=== PATIENT | female | born 2005 | race Caucasian/White ===

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

== ENCOUNTER 2024-04-02 10:09 | Outpatient (OUT) | payer BC, SELFPAY ==
--- OUTSIDE RECORDS SUMMARY | 2024-04-02 10:31 | XMS_ITS | CCD ---
Author Organization [facility] Care Team Providers Care Refrigeration Installer Name Role Phone BRANDEN, DR LYNN Attending [...] UNKNOWN Admitting Unavailable ELENA ORTEGA Attending Unavailable GLENYS STEWART Attending Unavailable Shane Blank MD Primary Care Provider [phone] Allergies Allergy Classification Reported Allergen(s) Allergy Type Date of Onset Reaction(s) Facility (1 source) Amoxicillin Drug Allergy 05-28-[address] [facility] Repository Medications Current Medications Medication Drug Class(es) Dates Sig (Normalized) Sig (Original) 21 day ethinyl estradiol 0.786817 mg/hr / etonogestrel 0.005 mg/hr vaginal system (1 source) Progestin, Estrogen Start: 02-06-2024 etonogestrel-ethinyl estradiol (NuvaRing) 0.12-0.015 MG/24HR vaginal ring Indications: Encounter for other contraceptive management Insert vaginally and leave in place for 21 consecutive days (3 weeks), then remove. Wait for 7 days before inserting new ring. 1 each 12 02/06/2024 Active etonogestrel 68 mg drug implant (2 sources) Progestin Start: 02-06-2024 End: 02-05-2027 etonogestrel-eluting 68 mg contraceptive implant 1 each Problems Active Problems Problem Classification Problem Date Documented Da te Episodic/Chronic Contraceptive and procreative management (2 sources) Patient encounter status; Translations: [Encounter for surveillance of implantable subdermal contraceptive] 02-06-2024 Episodic E Codes: Struck by; against (1 source) Striking against or struck by other objects, initial encounter; Translations: [STRIKING AGNST/STRUCK OTH OBJ INIT] Onset: 05-31-2021 Episodic E Codes: Unspecified (1 source) Activity, baseball; Translations: [ACTIVITY BASEBALL] Onset: 05-31-2021 Episodic Headache; including migraine (2 sources) Tension-type headache; Translations: [Tension-type headache, unspecified, not intractable] Onset: 07-19-2023 07-19-2023 Chronic Other nervous system disorders (1 source) Circadian rhythm sleep disorder of shift work type; Translations: [Circadian rhythm sleep disorder, shift work type] Onset: 07-19-2023 07-19-2023 Chronic Other non-traumatic joint disorders (4 sources) Pain [...] Name Value Interpretation Reference Range Facil ity Insertion/Removal of Contrac eptive Capsuleon 02-06-2024 Adrienne Alcaraz LPN 02/26/2024 4:27 PM Insertion/Removal of Contraceptive Capsule Date/Time: 02/06/2024 4:31 PM Performed by: Glenys Stewart DO Authorized by: Glenys Stewart DO Consent: Consent obtained: Written Consent given by: Patient Patient questions answered: yes Patient agrees, verbalizes understanding, and wants to proceed: yes Educational handouts given: yes Instructions and paperwork completed: yes Indication: Indication: Presence of non-biodegradable drug delivery implant Pre-procedure: Local anesthetic: Lidocaine without epinephrine The site was cleaned and prepped in a sterile fashion: yes Procedure: Procedure: Removal Small stab incision was made in arm: yes Left/right: Left Preloaded contraceptive capsule trocar was placed subdermally: no Visualization of implant was obtained: yes Contraceptive capsule was inserted and trocar removed: no Visualization of notch in stylet and palpation of device: no Palpation confirms placement by provider and patient: no Site was closed with steri-strips and pressure bandage applied: no Comments: Nexplanon Removal: Patient presents today for removal of Nexplanon. Written consent for procedure was obtained and patient was placed in supine position with left arm flexed at elbow. Skin was cleansed with alcohol/Betadine and 2cc of Lidocaine was injected underneath palpated Nexplanon at distal end. After allowing for sufficient time for numbing agent to take effect, the skin overlying the end of Nexplanon was incised with an 11inch blade scalpel. A 7.5in hemostat was inserted in the incision site to grab device and Nexplanon was released from tissue. Nexplanon implant was removed in its entirety and visualized by myself and patient. The skin was cleansed with alcohol and the incision was covered with gauze. Post-procedure care was reviewed and patient will continue with proposed plan of care. Patient was advised to call office with any questions or concerns. Follow Up: Patient is to return to the office as needed for any routine appointments. [facility] Insertion/Removal of Contrac eptive CapsuleOrdered By: Adrienne Alcaraz on 02-06-2024 [facility] MIN 3 Von 2021 [...] GIBSON LAWSON Date: 2021-05-28 15:[address] [facility] CHLAMYDIA/GONOCOCCUS WAYNE (SW AB/URINE/PAPon 02-07-2021 Chlamydia trachomatis, WAYNE Negative Normal Negative [facility] Comment on above: Performed By: #### C T/NGNA #### [facility] [address] [place] [address] Dr. Stephanie Pierre Neisseria gonorrhoeae, WAYNE Negative Normal Negative [facility] Comment on above: Performed By: #### C T/NGNA #### [facility] [address] [place] [address] Dr. Stephanie Pierre VAGINITIS/VAGINOSIS DNA PROB [place] 02-03-2021 Lara species Negative Normal Negative [facility] Comment on above: Performed By: #### V AGINT #### [facility] [address] [place] [address] Dr. Stephanie Pierre Gardnerella vaginalis Negative Normal Negative [facility] Comment on above: Performed By: #### V AGINT #### [facility] [address] [place] [address] Dr. Stephanie Pierre Trichomonas vaginalis Negative Normal Negative [facility] Comment on above: Performed By: #### V AGINT #### [facility] [address] [place] [address] Dr. Stephanie Pierre Covid-19 PCR (CVDTB)on 01-10 SARS-CoV-2 (COVID-19) RNA WAYNE+probe Ql (Unsp spec) Not detected Normal NOT DETECTED [facility] Comment on above: Result Comment: This test is not yet approved or cleared by the [place] FDA. When there are no FDA-approved or cleared tests available, and other criteria are met, FDA can make tests available under an emergency access mechanism called an Emergency Use Authorization (EUA). The EUA for this test is supported by the [employer] of Health and Human Service's (HHS's) declaration [...] consistent with SARS-CoV-2. Performed By: #### C [facility] #### [facility] [address] [place] [address] Dr. Stephanie Pierre Covid-19 PCR (CVDTB)on 11-10 SARS-CoV-2 (COVID-19) RNA WAYNE+probe Ql (Unsp spec) Not detected Normal NOT DETECTED [facility] Comment on above: Result Comment: This test is not yet approved or cleared by the [place] FDA. When there are no FDA-approved or cleared tests available, and other criteria are met, FDA can make tests available under an emergency access mechanism called an Emergency Use Authorization (EUA). The EUA for this test is supported by the [employer] of Health and Human Service's (HHS's) declaration [...] SARS-CoV-2. Performed By: #### C VDTB #### [facility] [address] [place] [id number] Angus Solitario SYMPTOMATIC COVID-19 ANTIGEN on 11-19-2020 EUA Statement SEE BELOW Normal [facility] Comment on above: Result Comment: This test [...] sooner. Performed By: #### C VDAGS #### [facility] [address] [place] [id number] Angus Solitario SARS-CoV-2 (COVID-19) RNA WAYNE+probe Ql (Unsp spec) Negative Normal NEGATIVE [facility] Comment on above: Result Comment: CONF IRMATION BY PCR PENDING PER CDC GUIDELINES/ SYMPTOMATIC PATIENT. Performed By: #### C VDAGS #### [facility] [address] [place] [address] Angus Solitario Coding Summaryon 08-13-2019 Coding Summary CODING DATE: 08/13/2019 [facility] STATUS: Home PAYOR: Medicaid HMO ADMIT DX: [...] Coded By: Juan Howard Date Saved: 08/13/2019 09:03 am [facility] Coding Summary CODING DATE: 08/13/2019 [facility] STATUS: Home PAYOR: Medicaid HMO ADMIT DX: [...] Juan Howard Date Saved: 08/13/2019 09:01 am [facility] Consent Formson 08-11-2019 Consent Forms [id number] [facility] ED Clinical Summaryon 2019 ED Clinical Summary [facility] - Emergency Department [address] [place] [address] ED Clinical Summary PERSON INFORMATION Name: NICCI SHAW Age: 14 Years Sex: FEMALE : 2005 MRN: Acct#: Visit Reason: Finger injury - Minor; RIGHT FINGER PAIN Arrival: 08/07/2019 19:12:03 Discharge: 08/07/2019 20:18:00 LOS: 000 01:06 Check In: 08/07/2019 19:12:03 Checkout:08/07/2019 20:18:00 Address: [address] [place] [address] PCP: SHANE BLANK PROVIDER INFORMATION Provider Role Assigned Unassigned Kev Nixon PA-C ED PA 08/07/2019 19:13:55 08/07/2019 19:15:19 Lesvia Luis ED 08/07/2019 19:14:09 JESUS Montelongo, Sarah ED Nurse [...] sprain of right ring finger, initial encounter ([id number] S63.694A, Discharge, Medical) Plan Condition: Stable. Disposition: Discharged: Time 08/07/2019 19:55:00, to home. Patient was given the following educational materials: Cryotherapy, Finger Sprain, Adult. Follow up with: SHANE BLANK Within 3 to 5 days; ABELARDO JACKSON [...] Follow-Up: With: Address: When: ABELARDO JACKSON [address] [place] [address] Business (1) Within 3 to [...] require the hand. With: Address: When: SHANE BLANK [address] [place] [address] Business (1) Within 3 to 5 days DIAGNOSIS: Other sprain of right ring finger, initial encounter Patient Understands: Yes - Patient/family/careg iver verbalizes understanding of instructions given Comment: [facility] ED Note - Physicianon 2019 ED Note [...] sprain of right ring finger, initial encounter ([id number] S63.694A, Discharge, Medical) Plan Condition: Stable. Disposition: Discharged: Time 08/07/2019 19:55:00, to home. Patient was given the following educational materials: Cryotherapy, Finger Sprain, Adult. Follow up with: SHANE BLANK Within 3 to 5 days; ABELARDO KRESGE Within 3 to 5 days Orthopaedic specialist [...] [Verified on: 08/07/2019 20:12 EDT] Lesvia Luis [facility] ED Note - Physician Patient: NICCI SHAW Age: 14 years Sex: FEMALE : 2005 Associated Diagnoses: None Author: Kev Nixon PA-C Basic Information Time seen: Date & time 08/07/2019 19:14:00. History source: Patient. Arrival mode: Private vehicle. History limitation: None. Kev Nixon PA-C [facility] ED Patient Education Noteon 08-07-2019 ED Patient [...] sitting or lying down. Medicines ? Take gsxg-ois-krpixsb and prescription medicines only as told by [...] 04/05/2005 Document Revised: 05/18/2017 Document Reviewed: 05/18/2017 [employer] Interactive Patient Education ? 2019 [employer]. Cryotherapy What is cryotherapy? Cryotherapy, or cold [...] 10/23/2011 Document Revised: 05/03/2017 Document Reviewed: 11/10/2015 Elsevier Interactive Patient Education ? 2019 [employer] Normal [facility] ED Patient Summaryon 020 ED Patient Summary [facility] - Emergency Department [address], [place] [id number] PATIENT DISCHARGE INSTRUCTIONS Patient Information Name: NICCI SHAW Age: 14 Years Date of : 2005 Reason For Visit: Finger injury - Minor; RIGHT FINGER PAIN Arrival Time: 08/07/2019 19:12:03 Primary Care Physician: SHANE BLANK Attending Physician: Soto Thomas Comment: Visit Diagnosis: Diagnoses This Visit Finger injury - Minor ([id number]) Other sprain of right ring finger, initial encounter (K06.071V) Prescription Information: If you have been given a prescription for narcotics, seek immediate medical attention if you have any difficulty breathing or any sudden status changes such as confusion and sleepiness. If you or anyone you know is experiencing suicidal thoughts, mental health, alcohol and/or drug addiction problems; contact the [facility] 02/10 Crisis Hotline -Text 4HHDB wk [id number]. If you received any narcotics, sedation, or [...] documents With: Address: When: ABELARDO JACKSON [address] [facility], [address] [place], [place] [id number] Business (1) Within 3 to 5 days [...] require the hand. With: Address: When: SHANE BLANK [address] [place] [address] [address] [place], [place] [id number] Business (1) Within 3 to 5 days Medication Information: The exam and treatment you received today in the [facility] Emergency Department were for an urgent problem and are not intended as complete care. It is important for you to follow up with a doctor, nurse practitioner, or physician?s assistant director of security for ongoing care. If your symptoms become [...] so we can reach you if necessary. [facility] Emergency Department has provided you with a complete list of medications post discharge. Please inform your narrative writer/provider of your visit and for further instruction [...] sitting or lying down. Medicines ? Take ujze-dww-wsrjzrv and prescription medicines only as told by [...] 04/05/2005 Document Revised: 05/18/2017 Document Reviewed: 05/18/2017 [employer] Interactive Patient Education ? 2019 [employer]. Cryotherapy What is cryotherapy? Cryotherapy, or cold [...] 10/23/2011 Document Revised: 05/03/2017 Document Reviewed: 11/10/2015 [employer] Interactive Patient Education ? 2019 [employer]. Viruses or Bacteria What?s got you sick? [...] GET SMART Know When Antibiotics Work U.S. Department of Health and Human Services Centers for Disease Control and Prevention November 2013 [facility] XR Finger Righton 08-07-2019 XR Finger Right [...] Lawson 08/07/19 7:37 pm Technologist: Koki HERMAN [facility] Vital Signs Date Time Vital Sign Value Performing Clinician Aliyai antoine 02-06-2024 16:20-0500 Body mass index (BMI) [Ratio] 24.81 kg/m2 Glenys Terry DO Work Phone: [facility] 02-06-2024 16:20-0500 Body weight 76.2 kg Glenys Lizarragao DO Work Phone: [facility] 02-06-2024 16:20-0500 Diastolic blood pressure 78 mm[Hg] Glenys Terry DO Work Phone: [facility] 02-06-2024 16:20-0500 Systolic blood pressure 116 mm[Hg] Glenys Lizarraago DO Work Phone: [facility] Healthcare Encounters Encounter Date Encounter Type Care Provider Facility Start: 02-06-2024 End: 02-06-2024 Patient encounter procedure Glenys Stewart DO Work Phone: [facility] BCP OB Comment on above: Encounter for remova l and reinsertion of Nexplanon; Encounter for other contraceptive management Start: 02-06-2024 End: 02-06-2024 ambulatory GLENYS TERRY Not Available Start: 04-10-2023 End: 04-10-2023 ambulatory ELENA ORTEGA Not Available Start: 09-06-2022 End: 09-08-2022 ambulatory UNKNOWN PROVIDER [facility] Start: 07-11-2022 ambulatory Ivy dee:[facility] Start: 06-08-[address] SHANE BLANK Facility :[facility] Start: 05-28-2021 End: 05-28-[address] SHANE BLANK Facility:[facility] Start: 02-01-2021 End: 02-01-[address] SHANE BLANK Facility:[facility] Start: 01-21-2021 End: 01-21-[address] SHANE BLANK Facility:[facility] Start: 11-19-2020 End: 11-19-[address] SHANE BLANK Facility:[facility] Procedures Date Procedure Procedure Detail Performing Clinician Start: 02-06-2024 AGRICULTURAL PILOT INSERTION/REMOVA L OF CONTRACEPTIVE CAPSULE Glenys Stewart DO Work Phone: Plan of Treatment Date Care Activity Detail Author Start: 11-11-2023 Influenza vaccination Influenza Vacc ine (#1) [facility] Immunizations Immunization Date Immunization Notes Care Provider Fa cility 01-18-2022 influenza virus vacc ine, unspecified formulation Glenys Stewart DO Work Phone: [facility] Payers Date Payer Category Payer [facility] [id number] 2023 Unknown [id number] 2022 Self-pay 2005 Unknown [id number] 2004 Unknown [id number] [id number] 2004 Unknown [id number]. [id number] 1975 Unknown [id number]. [id number] 1975 Unknown [id number] [id number] 1975 Unknown [id number] [id number]. [id number] 1975 Unknown [id number]. [id number] 1975 Unknown [id number] [id number] 1959 Unknown [id number] Social History Date Type Detail Facility Start: 07-19-2023 Tobacco smoking stat [facility] Tobacco smoking consumption unknown [facility] Healthcare Start: 2005 Sex assigned at Not on file [facility] Gender identity Not on file [facility] History of Present illness Narrative 02-06-2024 Glenys Stewart DO - 02/06/2024 3:30 PM EST Note Date & Type Note Facility 02-06-2024 History of Presen t illness Narrative Associated Order(s): Insertion/Removal of Contraceptive Capsule Post-Procedure Diagnose(s): Encounter for removal and reinsertion of Nexplanon Reason for Appointment: Patient ID: Nicci Shaw is a 18 y.o. female who presents for nexplanon removal/insertion Patient presents today for a Nexplanon Removal appointment. MEDICATIONS No current outpatient medications ALLERGIES No Known Allergies SURGICAL HISTORY History reviewed. No pertinent surgical history. REVIEW OF SYSTEMS Review of Systems: Review of Systems Constitutional: Negative. HENT: Negative. Eyes: Negative. Respiratory: Negative. Cardiovascular: Negative. Gastrointestinal: Negative. Genitourinary: Negative. Musculoskeletal: Negative. Skin: Negative. Neurological: Negative. All other systems reviewed and are negative. Hematological: Negative. Endocrine: Negative. Allergic/Immunologic: Negative. OBJECTIVE Objective: Physical Exam Constitutional: Appearance: Normal appearance. She is well-developed. Cardiovascular: Rate and Rhythm: Normal rate and regular rhythm. Pulmonary: Effort: Pulmonary effort is normal. Breath sounds: Normal breath sounds. Abdominal: General: Bowel sounds are normal. There is no distension. Palpations: Abdomen is soft. Tenderness: There is no abdominal tenderness. There is no guarding or rebound. Musculoskeletal: General: No swelling. Normal range of motion. Right lower leg: No edema. Left lower leg: No edema. Neurological: Mental Status: She is alert and oriented to person, place, and time. Skin: General: Skin is warm and dry. Psychiatric: Mood and Affect: Mood normal. Behavior: Behavior normal. Vitals and nursing note reviewed. Exam conducted with a family member caretaker present. Vitals: Estimated body mass index is 24.81 kg/m as calculated from the following: Height as of 05/21/23: 5' 9 . Weight as of this encounter: 168 lb. BP: 116/78 No LMP recorded. Patient has had an implant. ASSESSMENT & PLAN Assessment/Plan Encounter Diagnosis: ICD-10-CM 1. Encounter for removal and reinsertion of Nexplanon Z30.46 etonogestrel-eluting 68 mg contraceptive implant 1 each POCT , urine manually resulted Insertion/Removal of Contraceptive Capsule Date/Time: 02/06/2024 4:31 PM Performed by: Glenys Stewart DO Authorized by: Glenys Stewart DO Consent: Consent obtained: Written Consent given by: Patient Patient questions answered: yes Patient agrees, verbalizes understanding, and wants to proceed: yes Educational handouts given: yes Instructions and paperwork completed: yes Indication: Indication: Presence of non-biodegradable drug delivery implant Pre-procedure: Local anesthetic: Lidocaine without epinephrine The site was cleaned and prepped in a sterile fashion: yes Procedure: Procedure: Removal Small stab incision was made in arm: yes Left/right: Left Preloaded contraceptive capsule trocar was placed subdermally: no Visualization of implant was obtained: yes Contraceptive capsule was inserted and trocar removed: no Visualization of notch in stylet and palpation of device: no Palpation confirms placement by provider and patient: no Site was closed with steri-strips and pressure bandage applied: no Comments: Nexplanon Removal: Patient presents today for removal of Nexplanon. Written consent for procedure was obtained and patient was placed in supine position with left arm flexed at elbow. Skin was cleansed with alcohol/Betadine and 2cc of Lidocaine was injected underneath palpated Nexplanon at distal end. After allowing for sufficient time for numbing agent to take effect, the skin overlying the end of Nexplanon was incised with an 11inch blade scalpel. A 7.5in hemostat was inserted in the incision site to grab device and Nexplanon was released from tissue. Nexplanon implant was removed in its entirety and visualized by myself and patient. The skin was cleansed with alcohol and the incision was covered with gauze. Post-procedure care was reviewed and patient will continue with proposed plan of care. Patient was advised to call office with any questions or concerns. Follow Up: Patient is to return to the office as needed for any routine appointments. Documented by Kassi Renner LPN on behalf of: Glenys Stewart DO documented in this encounter [facility] Evaluation note Note Date & Type Note Facility Evaluation note Diagnosis Encounter for removal and reinsertion of Nexplanon Encounter for other contraceptive management documented in this encounter [facility] Summary Purpose Family History No Family History Records FoundNo Family History Records FoundNo Family History Records FoundNo Family History Records FoundNo Family History Records Found Advance Directives No Advanced Directives Records FoundNo Advanced Directives Records FoundNo Advanced Directives Records FoundNo Advanced Directives Records FoundNo Advanced Directives Records Found Additional Source Comments INFORMATION SOURCE (unrecogn ized section and content) DATE CREATED AUTHOR 08/13/2019 [facility] DATE CREATED AUTHOR AUTHOR'S ORGANIZ ATION 2021 [facility] DATE CREATED AUTHOR AUTHOR'S ORGANIZ ATION 07/20/2022 [facility] DATE CREATED AUTHOR AUTHOR'S ORGANIZ ATION 09/09/2022 [facility] DATE CREATED AUTHOR AUTHOR'S ORGANIZ ATION 02/09/2024 [facility] EPIC Reason for Visit (unrecogniz ed section and content) Reason Comments nexplanon removal/insertion Care Teams (unrecognized sec tion and content) Refrigeration Installer Relationship Specialty Start Date End Date Shane Blank MD [address] [place] [address] PCP - General Family Medicine 03/29/23 FOR RECORDS PERTAINING TO PATIENTS WHO ARE [...] BE BASED ON THE PRIMARY CLINICAL RECORDS. [facility]. provides no warranty or guarantee of the accuracy or completeness of information in this document.
[2024-04-02 10:36] LABS: Basophils Absolute Auto 0.1 10^3/uL (0.0-0.1); Basophils Percent Auto 0.9 % (0.2-2.0); Eosinophils Absolute Auto 0.3 10^3/uL (0.0-0.7); Eosinophils Percent Auto 4.1 % (0.9-7.0); Hematocrit 43.5 % (36.0-48.0); Hemoglobin 14.5 g/dL (12.0-16.0); Immature Granulocytes Abs Auto 0.01 10^3/uL (0.00-0.03); Immature Granulocytes Pct Auto 0.2 % (0.0-0.5); Lymphocytes Absolute Auto 2.5 10^3/uL (1.2-3.8); Lymphocytes Percent Auto 38.9 % (20.5-60.0); Mean Corpuscular HGB Conc 33.3 g/dL (29.9-35.2); Mean Corpuscular Hemoglobin 29.6 pg (26.7-34.0); Mean Corpuscular Volume 88.8 fL (81.0-99.0); Mean Platelet Volume 9.7 fL (9.5-13.5); Monocytes Absolute Auto 0.3 10^3/uL (0.3-0.8); Monocytes Percent Auto 4.1 % (1.7-12.0); Neutrophils Absolute Auto 3.3 10^3/uL (1.4-6.5); Neutrophils Percent Auto 51.8 % (43.0-75.0); Platelet Count 277 10^3/uL (150-450); Red Cell Distribution Width 11.8 % (11.0-15.0); White Blood Count 6.4 10^3/uL (4.0-11.0)
[2024-04-02 11:18] LABS: Alanine Aminotransferase 17 U/L (14-59); Albumin Globulin Ratio 1.3; Albumin Level 4.1 g/dL (3.4-5.0); Alkaline Phosphatase 68 U/L (46-116); Anion Gap 12.3; Aspartate Amino Transferase 16 U/L (15-37); BUN Creatinine Ratio 9.6; Bilirubin Total 0.3 mg/dL (0.2-1.0); Calcium 9.2 mg/dL (8.5-10.1); Carbon Dioxide 30.5 mmol/L (21.0-32.0); Chloride 104 mmol/L (98-107); Chol HDL Ratio 2.7; Cholesterol 178 mg/dL (104-227); Estimated GFR (African America >60 (>=60 mL/min/1.73m^2); Estimated GFR (Non-African Ame >60 (>=60 mL/min/1.73m^2); Globulin 3.2 g/dL; Glucose 101 mg/dL (74-106); HDL Cholesterol 65 mg/dL (29-69); Potassium 3.8 mmol/L (3.5-5.1); Sodium 143 mmol/L (136-145); Thyroid Stimulating Hormone 0.297 uIU/mL (0.516-4.130); Total Protein 7.3 g/dL (6.4-8.2); Triglycerides 48 mg/dL (53-208); VLDL CHOLESTEROL 9.6 mg/dL
[2024-04-02 11:19] LABS: Estimated Average Glucose 100 mg/dL; Glycohemoglobin A1C 5.1 % (4.5-6.2)
[2024-04-03 08:09] LABS: Insulin 69.7 uIU/mL (2.6-24.9)
== END 2024-04-02 10:10 | disposition home or self-care (01) ==
LOC: LAB 10:11
PROVIDERS: PCP Family Medicine; Visit Provider Family Medicine
DX: R53.83 Other fatigue (principal); R73.09 Other abnormal glucose; D64.9 Anemia, unspecified; E55.9 Vitamin D deficiency, unspecified
CPT/HCPCS: 36415; 80053; 80061; 82306; 83036; 83525; 83540; 84436; 84443; 84481; 85025

== ENCOUNTER 2024-04-10 09:51 | Outpatient (OUT) | payer BC, SELFPAY ==
--- OUTSIDE RECORDS SUMMARY | 2024-04-10 10:04 | XMS_ITS | CCD ---
Author Organization [facility] Care Team Providers Care Assembler Ping Pong Table Name Role Phone BRANDEN, DR LYNN Attending [...] Unavailable Shane Blank MD Primary Care Provider [phone] Allergies Allergy Classification Reported Allergen(s) Allergy Type Date of Onset Reaction(s) Facility (1 source) Amoxicillin Drug Allergy 05-28-2021 [facility] Repository Medications Current Medications Medication Drug Class(es) Dates Sig (Normalized) Sig (Original) 21 day ethinyl estradiol 0.663296 mg/hr / etonogestrel 0.005 mg/hr vaginal system [...] office as needed for any routine appointments. [facility] Insertion/Removal of Contrac eptive CapsuleOrdered By: [...] GIBSON LAWSON Date: 2021-05-28 15:24 Normal [facility] CHLAMYDIA/GONOCOCCUS WAYNE (SW AB/URINE/PAPon 02-07-2021 Chlamydia trachomatis, WAYNE Negative Normal Negative [facility] Comment on above: Performed By: #### C T/NGNA #### [facility] [address] [place] [address] Dr. Stephanie Pierre Neisseria gonorrhoeae, WAYNE Negative Normal Negative [facility] Comment on above: Performed By: #### C T/NGNA #### [facility] [address] [place] [address] Dr. Stephanie Pierre VAGINITIS/VAGINOSIS DNA PROB [place] 02-03-2021 Lara species Negative Normal Negative [facility] Comment on above: Performed By: #### V AGINT #### [facility] [address] [place] [address] Dr. Stephanie Pierre Gardnerella vaginalis Negative Normal Negative [facility] Comment on above: Performed By: #### V AGINT #### [facility] [address] [place] [address] Dr. Stephanie Pierre Trichomonas vaginalis Negative Normal Negative [facility] Comment on above: Performed By: #### V AGINT #### [facility] [address] [place] [address] Dr. Stephanie Pierre Covid-19 PCR (CVDTB)on 01-10 SARS-CoV-2 (COVID-19) RNA WAYNE+probe Ql (Unsp spec) Not detected Normal NOT DETECTED [facility] Comment on above: Result Comment: This test is not yet approved or cleared by the [place] FDA. When there are no FDA-approved or cleared tests available, and other criteria are met, FDA can make tests available under an emergency access mechanism called an Emergency Use Authorization (EUA). The EUA for this test is supported by the Strain Technician of Health and Human Service's (HHS's) [...] consistent with SARS-CoV-2. Performed By: #### [facility] #### [facility] [address] [place] [address] Dr. Stephanie Pierre Covid-19 PCR (CVDTB)on 11-10 SARS-CoV-2 (COVID-19) RNA WAYNE+probe Ql (Unsp spec) Not detected Normal NOT DETECTED [facility] Comment on above: Result Comment: This test is not yet approved or cleared by the [place] FDA. When there are no FDA-approved or cleared tests available, and other criteria are met, FDA can make tests available under an emergency access mechanism called an Emergency Use Authorization (EUA). The EUA for this test is supported by the Strain Technician of Health and Human Service's (HHS's) [...] SARS-CoV-2. Performed By: #### C VDTB #### [facility] [address] [place] [address] Angus Solitario SYMPTOMATIC COVID-19 ANTIGEN on 11-19-2020 EUA Statement SEE BELOW Normal [facility] Comment on above: Result Comment: This test [...] sooner. Performed By: #### C VDAGS #### [facility] [address] [place] [address] Angus Solitario SARS-CoV-2 (COVID-19) RNA WAYNE+probe Ql (Unsp spec) Negative Normal NEGATIVE [facility] Comment on above: Result Comment: CONF IRMATION BY PCR PENDING PER CDC GUIDELINES/ SYMPTOMATIC PATIENT. Performed By: #### C VDAGS #### [facility] [address] [place] [address] Angus Solitario Coding Summaryon 08-13-2019 Coding Summary CODING DATE: 08/13/2019 [facility] STATUS: Home PAYOR: Medicaid HMO ADMIT [...] Juan Howard Date Saved: 08/13/2019 09:03 am [facility] Coding Summary CODING DATE: 08/13/2019 [facility] STATUS: Home PAYOR: Medicaid HMO ADMIT [...] Juan Howard Date Saved: 08/13/2019 09:01 am [facility] Consent Formson 08-11-2019 Consent Forms [id number] #[email or web address] [facility] ED Clinical Summaryon 2019 ED Clinical Summary [facility] - Emergency Department [address] [place] [address] ED Clinical Summary PERSON INFORMATION Name: NICCI SHAW Age: 14 Years Sex: FEMALE : 2005 MRN: Acct#: Visit Reason: Finger injury - Minor; RIGHT FINGER PAIN Arrival: 08/07/2019 19:12:03 Discharge: 08/07/2019 20:18:00 LOS: 000 01:06 Check In: 08/07/2019 19:12:03 Checkout:08/07/2019 20:18:00 Address: [address] [place] [address] PCP: SHANE BLANK PROVIDER INFORMATION Provider Role [...] sprain of right ring finger, initial encounter ([id number] S63.694A, Discharge, Medical) Plan Condition: Stable. Disposition: [...] Follow-Up: With: Address: When: ABELARDO JACKSON [address] [place] [address] Business (1) Within 3 to [...] hand. With: Address: When: SHANE BLANK [address] [place] [address] Business (1) Within 3 to 5 days DIAGNOSIS: Other sprain of right ring finger, initial encounter Patient Understands: Yes - Patient/family/careg iver verbalizes understanding of instructions given Comment: [facility] ED Note - Physicianon 2019 ED Note - Physician Patient: NICCI SHWA Age: 14 years Sex: FEMALE : 2005 [...] sprain of right ring finger, initial encounter ([id number] S63.694A, Discharge, Medical) Plan Condition: Stable. Disposition: [...] [Verified on: 08/07/2019 20:12 EDT] Lesvia Luis [facility] ED Note - Physician Patient: NICCI SHAW Age: 14 years Sex: FEMALE : 2005 Associated Diagnoses: None Author: Kev Nixon PA-C Basic Information Time seen: Date & time 08/07/2019 19:14:00. History source: Patient. Arrival mode: Private vehicle. History limitation: None. Kev Nixon PA-C [facility] ED Patient Education Noteon 08-07-2019 ED [...] sitting or lying down. Medicines ? Take hogo-htn-sxjemze and prescription medicines only as told by [...] 04/05/2005 Document Revised: 05/18/2017 Document Reviewed: 05/18/2017 [employer] Interactive Patient Education ? 2019 [employer]. Cryotherapy What is cryotherapy? Cryotherapy, or cold [...] 11/10/2015 Elsevier Interactive Patient Education ? 2019 [employer] Normal [facility] ED Patient Summaryon 020 ED Patient Summary [facility] - Emergency Department [address] [place], [place] [id number] PATIENT DISCHARGE INSTRUCTIONS Patient Information Name: NICCI SHAW Age: 14 Years Date of : 2005 Reason For Visit: Finger injury - Minor; RIGHT FINGER PAIN Arrival Time: 08/07/2019 19:12:03 Primary Care Physician: SHANE BLANK Attending Physician: Soto Thomas Comment: Visit Diagnosis: Diagnoses This Visit Finger injury - Minor ([id number]) Other sprain of right ring finger, initial encounter (V63.363U) Prescription Information: If you have been given a prescription for narcotics, seek immediate medical attention if you have any difficulty breathing or any sudden status changes such as confusion and sleepiness. If you or anyone you know is experiencing suicidal thoughts, mental health, alcohol and/or drug addiction problems; contact the [facility] 02/10 Crisis Hotline -Text 4HFUP ib 126130. If you received any narcotics, sedation, or [...] documents With: Address: When: ABELARDO JACKSON [address] [facility], [address] [place], [place] [id number] Business (1) Within 3 to 5 days [...] the hand. With: Address: When: SHANE BLANK [address] [place] [address] [place], [place] [id number] Business (1) Within 3 to 5 days Medication Information: The exam and treatment you received today in the [facility] Emergency Department were for an urgent problem and are not intended as complete care. It is important for you to follow up with a doctor, nurse practitioner, or physician?s delivery driver assistant for ongoing care. If your symptoms [...] so we can reach you if necessary. [facility] Emergency Department has provided you with a complete list of medications post discharge. Please inform your catalogue maker/provider of your visit and for further instruction [...] sitting or lying down. Medicines ? Take oete-chk-zgapvyh and prescription medicines only as told by [...] 04/05/2005 Document Revised: 05/18/2017 Document Reviewed: 05/18/2017 [employer] Interactive Patient Education ? 2019 [employer]. Cryotherapy What is cryotherapy? Cryotherapy, or cold [...] 10/23/2011 Document Revised: 05/03/2017 Document Reviewed: 11/10/2015 [employer] Interactive Patient Education ? 2019 [employer]. Viruses or Bacteria What?s got you sick? [...] for Disease Control and Prevention November 2013 [facility] XR Finger Righton 08-07-2019 XR Finger [...] Lawson 08/07/19 7:37 pm Technologist: Koki HERMAN [facility] Vital Signs Date Time Vital Sign Value Performing Clinician Aliyai antoine 02-06-2024 16:20-0500 Body mass index (BMI) [Ratio] 24.81 kg/m2 Glenys Terry DO Work Phone: [facility] 02-06-2024 16:20-0500 Body weight 76.2 kg Glenys Lizarragao DO Work Phone: [facility] 02-06-2024 16:20-0500 Diastolic blood pressure 78 mm[Hg] Glenys Terry DO Work Phone: [facility] 02-06-2024 16:20-0500 Systolic blood pressure 116 mm[Hg] Glenys Lizarragao DO Work Phone: [facility] Encounters Encounter Date Encounter Type Care Provider Facility Start: 02-06-2024 End: 02-06-2024 Patient encounter procedure Glenys Stewart DO Work Phone: [facility] Comment on above: Encounter for remova l and reinsertion of Nexplanon; Encounter for other contraceptive management Start: 02-06-2024 End: 02-06-2024 ambulatory GLENYS TERRY Not Available Start: 04-10-2023 End: 04-10-2023 ambulatory ELENA ORTEGA Not Available Start: 09-06-2022 End: 09-08-2022 ambulatory UNKNOWN PROVIDER [facility] Start: 07-11-2022 ambulatory Ivy dee:[facility] Start: 06-08-[address] SHANE BLANK Facility :[facility] Start: 05-28-2021 End: 05-28-[address] SHANE BLANK Facility:[facility] Start: 02-01-2021 End: 02-01-[address] SHANE BLANK Facility:[facility] Start: 01-21-2021 End: 01-21-[address] SHANE BLANK Facility:[facility] Start: 11-19-2020 End: 11-19-[address] SHANE BLANK Facility:[facility] Procedures Date Procedure Procedure Detail Performing Clinician Start: 02-06-2024 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 2023 Unknown [id number] 2022 Self-pay 2005 Unknown [id number] [id number] 2004 Unknown [id number]. [id number] 2004 Unknown [id number] [id number]. 2.1259 1975 Unknown [id number] [id number]. 2.593 1975 Unknown [id number] [id number]. 2.593 1975 Unknown [id number] [id number]. 2.593 1975 Unknown [id number] [id number]. 2.593 1975 Unknown [id number] [id number]. 2.593 1959 Unknown [id number] Social History Date Type Detail Facility Start: 07-19-2023 Tobacco smoking stat [facility] Tobacco smoking consumption unknown [facility] Start: 2005 Sex assigned at Not [...] nursing note reviewed. Exam conducted with a mash tub cooker operator present. Vitals: Estimated body mass index is [...] section and content) DATE CREATED AUTHOR 08/13/2019 [facility] DATE CREATED AUTHOR AUTHOR'S ORGANIZ ATION 2021 [facility] DATE CREATED AUTHOR AUTHOR'S ORGANIZ ATION 07/20/2022 [facility] DATE CREATED AUTHOR AUTHOR'S ORGANIZ ATION 09/09/2022 [facility] DATE CREATED AUTHOR AUTHOR'S ORGANIZ ATION 02/09/2024 [facility] EPIC Reason for Visit (unrecogniz ed section and content) Reason Comments nexplanon removal/insertion Care Teams (unrecognized sec tion and content) Assembler Ping Pong Table Relationship Specialty Start Date End Date Shane Blank MD [address] [place] [address] PCP - General Family Medicine 03/29/23 FOR [...] BE BASED ON THE PRIMARY CLINICAL RECORDS. [employer] [facility]. provides no warranty or guarantee of the accuracy or completeness of information in this document.
[2024-04-11 08:13] LABS: Insulin 7.9 uIU/mL (2.6-24.9)
== END 2024-04-10 09:52 | disposition home or self-care (01) ==
LOC: LAB 09:53
PROVIDERS: PCP Family Medicine; Visit Provider Family Medicine
DX: R73.09 Other abnormal glucose (principal)
CPT/HCPCS: 36415; 83525

== ENCOUNTER 2025-01-27 08:51 | Outpatient (OUT) | payer BC, SELFPAY ==
--- OUTSIDE RECORDS SUMMARY | 2025-01-27 09:08 | XMS_ITS | CCD ---
Author Organization [facility] CliniSynv Care Team Providers Care Account Supervisor Name Role Phone BRANDEN, DR LYNN Attending [...] DR BECERRA Admitting Unavailable Ivy English Attending Unavailabl e Ivy English Admitting Unavailabl e NON STAFF Primary Care Unavailable PROVIDER, UNKNOWN Attending Unavailable PROVIDER, UNKNOWN Admitting Unavailable Shane Blank MD Primary Care Provider [phone] GLENYS STEWART Attending Unavailable GLENYS STEWART Attending Unavailable Shane Blank MD Primary Care Provider [phone] Allergies Allergy ClassificationReported Allergen(s)Allergy TypeDate of OnsetReaction(s) Facility (1 source)AmoxicillinDrug Hoeaqai05-78-2886Hav [facility] Repository Medications Current Medications MedicationDrug Class(es)DatesSig (Normalized)Sig (Original)21 day ethinyl estradiol 0.008172 mg/hr / etonogestrel 0.005 mg/hr vaginal system (2 sources)Progestin, EstrogenStart: 95-72-1179hsxaafjmmxlq-ethinyl estradiol (NuvaRing) 0.12-0.015 MG/24HR vaginal ring Indications: Encounter for other contraceptive management Insert vaginally and leave in place for 21 consecutive days (3 weeks), then remove. Wait for 7 days before inserting new ring. 1 each 12 02/06/2024 Activeetonogestrel 68 mg drug implant (4 sources)ProgestinStart: 02-06-2024 End: each, Implant, Continuous, Starting on Sun06/09/24 at 1145, For 1095 days Problems Active Problems Problem ClassificationProblemDateDocumented DateEpisodic/ChronicContraceptive and procreative management (3 sources)Patient encounter status; Translations: [Encounter for surveillance of implantable subdermal contraceptive]79-96-3419ZtulfmvwL Codes: Struck by; against (1 source)Striking against or struck by other objects, initial encounter; Translations: [STRIKING AGNST/STRUCK OTH OBJ INIT]Onset: 41-71-9680AcciwiomV Codes: Unspecified (1 source)Activity, baseball; Translations: [ACTIVITY BASEBALL]Onset: 05-31-2021 EpisodicHeadache; including migraine (6 sources)Tension-type headache; Translations: [Tension-type headache, unspecified, not intractable]Onset: 768630-60-2066IivfrpkMegbi nervous system disorders (3 sources)Circadian rhythm sleep disorder of shift work type; Translations: [Circadian rhythm sleep disorder,shift work type]Onset: 358616-49-1367 ChronicOther non-traumatic joint disorders (4 sources)Pain in left wrist; Translations: [PAIN IN LEFT WRIST]Onset: 99-59-2491DqpnkmgoUdbsdcmlwmv injury; contusion (1 source)Contusion of left wrist, initial encounter; Translations: [CONTUSION LEFT WRIST INITIAL ENC]Onset: 10-18-1323FncnzrvbUakkipjodxce (3 sources)CONTACT W/AND (SUSP) EXPOS COVID-19; Translations: [CONTACT W/AND (SUSP) EXPOS COVID-19]Onset: 98-46-2536Lboucpmwiywo (3 sources)ENCOUNT FOR SCREENING FOR COVID-19; Translations: [ENCOUNT FOR SCREENING FOR COVID-19]Onset: 11-29-2020 Past or Other Problems Problem ClassificationProblemDateDocumented DateEpisodic/ChronicOther screening for suspected conditions (not mental disorders or infectious disease) (4 sources)Encounter for screening for malignant neoplasm of cervix; Translations: [ENC SCREENING MALIG NEOPLASM CERV]Onset: 64-93-0454EblamkjlRihbz upper respiratory infections (1 source)Acute sinusitis, unspecified; Translations: [ACUTE SINUSITIS UNSPECIFIED]Onset: 25-98-6933HbbfiwfvBsaustpykhow (1 source)CONTACT W/AND (SUSP) EXPOS COVID-19; Translations: [CONTACT W/AND (SUSP) EXPOS COVID-19]Onset: 54-14-4943Vwglxtysibqu (1 source)ENCOUNT FOR SCREENING FOR COVID-19; Translations: [ENCOUNT FOR SCREENING FOR COVID-19]Onset: 11-19-2020 Results Test NameValueInterpretationReference RangeFacilityHCG ( test) Ql (U)on 45-31-8367Hfndtndgliyazf and review of laboratory resultsNormChester County Hospital Preg Test, UrNegativeNegativeGood Hope HospitalInsertion/Removal of Contraceptive Capsuleon 19-80-9212Orqhdck Alcaraz LPN 06/09/2024 2:06 PM Insertion/Removal of Contraceptive Capsule Date/Time: 06/09/2024 1:19 PM Performed by: Glenys Stewart DO Authorized by: Glenys Stewart DO Consent: Consent obtained: Written Consent given by: Patient Patient questions answered: yes Patient agrees, verbalizes understanding, and wants to proceed: yes Educational handouts given: yes Instructions and paperwork completed: yes Indication: Indication: Insertion of non-biodegradable drug delivery implant Pre-procedure: Pre-procedure timeout performed: yes Prepped with: povidone-iodine Local anesthetic: Lidocaine without epinephrine The site was cleaned and prepped in a sterile fashion: yes Procedure: Procedure: Insertion Small stab incision was made in arm: no Left/right: Left Preloaded contraceptive capsule trocar was placed subdermally: yes Visualization of implant was obtained: yes Contraceptive capsule was inserted and trocar removed: no Visualization of notch in stylet and palpation of device: yes Palpation confirms placement by provider and patient: yes Site was closed with steri-strips and pressure bandage applied: yesNOMS HealthcareNOMS HealthcareInsertion/Removal of Contraceptive Capsuleon 02-06-2024 Adrienne Alcaraz LPN 02/26/2024 4:27 [...] the office as needed for any routine appointments.[facility] HealthcareInsertion/Removal of Contraceptive CapsuleOrdered By: Adrienne Alcaraz on 81-46-2906SHIDMiss[facility] Center HEAD/BRAIN WO CONon 08-34-2628[address] [address] Magnetic Resonance Report Signed Patient: NICCI SHAW MR#: [id number] : 2005 Acct:[id number] Age/Sex: 17 / F ADM Date: 06/07/23 Loc: MRI Attending Dr: Keke Archuleta D.O. Ordering Physician: Keke Archuleta D.O. Date of Service: 06/07/23 Procedure(s): MR head/brain wo con Accession Number(s): [id number] cc: Keke Archuleta D.O.; Shane Blank M.D. [address] [place] [address] Patient Name: NICCI SHAW MRN: [id number] date: 2005 Sex: F Assigned Patient Location: MRI Current Patient Location: MRI Accession/Order Number: [id number] Exam Date: 06/07/2023 08:40 Report Date: 06/07/2023 09:29 At the request of: KEKE ARCHULETA Procedure: MR head/brain wo con MR head/brain wo con, 06/07/2023 8:40 AM EDT INDICATION: Cadet Headache R51.9 COMPARISON: There is no appropriate prior study for comparison. TECHNIQUE: Multiplanar, multisequential MRI images of brain were obtained without injection of contrast. FINDINGS: The cerebral sulci as well as ventricular system are appropriate for age. There is no restricted diffusion. There is no intracranial mass, mass effect, midline shift, intra or extra-axial fluid collection or large hemorrhage. Normal flow-void in the intracranial vessels is noted. The visualized portions of orbits, mastoid air cells as well as paranasal sinuses are unremarkable. MR/MR head/brain wo con IMPRESSION: Normal MRI of the head. Electronically authenticated by: JARRETT LIN Date: 06/07/2023 09:29 Dictated By: Jarrett Lin M.D. Signed By: 06/07/23930 DD/ 8 TD/TT: Chassis Driver:TBHRadiology, Radiologist, MD - 06/07/2023 [place] [address] Magnetic Resonance Report Signed Patient: NICCI SHAW MR#: [id number] : 2005 Acct:[id number] Age/Sex: 17 / F ADM Date: 06/07/23 Loc: MRI Attending Dr: Keke Archuleta D.O. Ordering Physician: Keke Archuleta D.O. Date of Service: 06/07/23 Procedure(s): MR head/brain wo con Accession Number(s): [id number] cc: Keke Archuleta D.O.; Shane Blank M.D. [facility] [place] [address] Patient Name: NICCI SHAW MRN: [id number] date: 2005 Sex: F Assigned Patient Location: MRI Current Patient Location: MRI Accession/Order Number: [id number] Exam Date: 06/07/2023 08:40 Report Date: 06/07/2023 09:29 At the request of: KEKE ARCHULETA Procedure: MR head/brain wo con MR head/brain wo con, 06/07/2023 8:40 AM EDT INDICATION: Cadet Headache R51.9 COMPARISON: There is no appropriate prior study for comparison. TECHNIQUE: Multiplanar, multisequential MRI images of brain were obtained without injection of contrast. FINDINGS: The cerebral sulci as well as ventricular system are appropriate for age. There is no restricted diffusion. There is no intracranial mass, mass effect, midline shift, intra or extra-axial fluid collection or large hemorrhage. Normal flow-void in the intracranial vessels is noted. The visualized portions of orbits, mastoid air cells as well as paranasal sinuses are unremarkable. MR/MR head/brain wo con IMPRESSION: Normal MRI of the head. Electronically authenticated by: JARRETT LIN Date: 06/07/2023 09:29 Dictated By: Jarrett Lin M.D. Signed By: 06/07/23930 DD/ 8 TD/TT: Chassis Driver: [facility] CenterRadiology Study observation (narrative)[facility] HEAD/BRAIN WO CONOrdered By: Radiologist Radiology on 88-96-9077YSSI [employer] Work Phone: XR WRIST LT MIN 3 Von 88-07-9210WH WRIST LT MIN 3 V IMAGES REVIEWED: [...] Electronically authenticated by: GIBSON LAWSON Date: 2021-05-28 15:24[facility] Private HospitalCHLAMYDIA/GONOCOCCUS WAYNE (SWAB/URINE/PAPon 54-76-8660Qeazivsdp trachomatis, NAANegativeNormalNegativeSelect Medical Specialty Hospital - TrumbullComment on above: Performed By: #### CT/NGNA #### [facility] [address] [place] [address] Dr. Stephanie PierreNeisseria gonorrhoeae, NAANegativeNormalNegativeSelect Medical Specialty Hospital - TrumbullComment on above:Performed By: #### CT/NGNA #### [facility] [address] [place] [address] Dr. Stephanie PierreVAGINITIS/VAGINOSIS DNA PROBEon 01-70-7261Zpifoyg speciesNegative NormalNegativeSelect Medical Specialty Hospital - TrumbullComment on above:Performed By: #### VAGINT #### [facility] [address] [place] [address] Dr. Stephanie Persauderella vaginalisNegativeNormalNegativeSelect Medical Specialty Hospital - Trumbull Comment on above:Performed By: #### VAGINT #### [facility] [address] [address] [address] Stephanie PierreTrichomonas vaginalisNegativeParkland Health CenteralNegativeSelect Medical Specialty Hospital - Trumbull Comment on above:Performed By: #### VAGINT #### [facility] [address] [place] [address] Dr. Stephanie PierreCovid-19 PCR (CVDTBH)on 94-65-1155GJRR-CoV-2 (COVID-19) RNA WAYNE+probe Ql (Unsp spec)Not detectedNormalNOT DETECTEDThe [facility] Comment on above:Result Comment: This test is not yet approved or cleared by the [place] FDA. When there are no FDA-approved or cleared tests available, and other criteria are met, FDA can make tests available under an emergency access mechanism called an Emergency Use Authorization (EUA). The EUA for this test is supported by the Manufacturing Machine Operator of Health and Human Service's (HHS's) declaration that circumstances exist to justify the emergency use of in vitro diagnostics for the detection and/or diagnosis of the virus that causes COVID- 19. This EUA will remain in effect (meaning [...] of clinical signs and symptoms consistent with SARS-CoV-2.Performed By: #### CVDFOXBOROUGH STATE [facility] #### [facility] [address] [place] [address] Dr. Stephanie Stoll-19 PCR ([facility])on 56-04-8983VYEW-CoV-2 (COVID-19) RNA WAYNE+probe Ql (Unsp spec)Not detectedNormalNOT DETECTEDThe [facility] Comment on above:Result Comment: This test is not yet approved or cleared by the [place] FDA. When there are no FDA-approved or cleared tests available, and other criteria are met, FDA can make tests available under an emergency access mechanism called an Emergency Use Authorization (EUA). The EUA for this test is supported by the Manufacturing Machine Operator of Health and Human Service's (HHS's) declaration that circumstances exist to justify the emergency use of in vitro diagnostics for the detection and/or diagnosis of the virus that causes COVID- 19. This EUA will remain in effect (meaning [...] of clinical signs and symptoms consistent with SARS-CoV-2.Performed By: #### CVDTBH #### [facility] [address] [place] [address] Angus SinghenSYMPTOMATIC COVID-19 ANTIGENon 02-04-7748WTH StatementSEE BELOW NormalThe St. Francis HospitalComment on above:Result Comment: This test has not been FDA [...] declaration is terminated or authorization is revoked sooner.Performed By: #### CVDAGS #### [facility] [address] [place] [address] Angus LawlerYyjzeJTRP-RoQ-6 (COVID-19) RNA WAYNE+probe Ql (Unsp spec)NegativeNormal NEGATIVEThe St. Francis HospitalComment on above:Result Comment: CONFIRMATION BY PCR PENDING PER CDC GUIDELINES/ SYMPTOMATIC PATIENT.Performed By: #### CVDAGS #### [facility] [address] [place] [address] Angus KarenCoding Summaryon 05-81-1122Yqvaik SummaryCODING DATE: 08/13/2019 [facility] STATUS: Home PAYOR: Medicaid HMO ADMIT DX: [...] By: Juan Howard Date Saved: 08/13/2019 09:03 [facility] SummaryCODING DATE: 08/13/2019 [facility] STATUS: Home PAYOR: Medicaid HMO ADMIT DX: [...] By: Juan Howard Date Saved: 08/13/2019 09:01 [facility] HospitalConsent Formson 08-11-2019 Consent [id number] Berger HospitalED Clinical Summaryon 34-80-4829OG Clinical [facility] - Emergency Department [address] [place] [address] ED Clinical Summary PERSON INFORMATION Name: NICCI SHAW Age: 14 Years Sex: FEMALE : 2005 MRN: Acct#: Visit Reason: Finger injury - Minor; RIGHT FINGER PAIN Arrival: 08/07/2019 19:12:03 Discharge: 08/07/2019 20:18:00 LOS: 000 01:06 Check In: 08/07/2019 19:12:03 Checkout:08/07/2019 20:18:00 Address: [address] [place] [address] PCP: SHANE BLANK PROVIDER INFORMATION Provider Role [...] Ice and elevation are discussed. Excuse for softballis given, child can continue conditioning but should [...] sprain of right ring finger, initial encounter (RXV82-PF S63.694A, Discharge, Medical) Plan Condition: Stable. Disposition: [...] Follow-Up: With: Address: When: ABELARDO JACKSON [address] [place] [address] Business (1) Within 3 to [...] hand. With: Address: When: SHANE BLANK [address] [facility] [place] [address] Business (1) Within 3 to 5 days DIAGNOSIS: Other sprain of right ring finger, initial encounter Patient Understands: Yes - Patient/family/caregiver verbalizes understanding of instructions given Comment:[facility]ED Note - Physicianon 17-39-3126OZ Note - PhysicianPatient: NICCI SHAW Age: 14 years Sex: FEMALE [...] Ice and elevation are discussed. Excuse for softballis given, child can continue conditioning but should [...] sprain of right ring finger, initial encounter (AEH93-LF S63.694A, Discharge, Medical) Plan Condition: Stable. Disposition: [...] Luis [Verified on: 08/07/2019 20:12 EDT] Lesvia LuisSdrosy HospitalED Note - PhysicianPatient: NICCI SHAW Age: 14 years Sex: FEMALE : 2005 Associated Diagnoses: None Author: Kev Nixon PA-C Basic Information Time seen: Date & time 08/07/2019 19:14:00. History source: Patient. Arrival mode: Private vehicle. History limitation: None. Kev Nixon PA-C ARpriyaSdanahiohiohealth hardin memorial hospital HospitalED Patient Education Noteon 32-30-6256CF Patient Education NoteEducation Materials Orthopedics Finger Sprain, Adult A finger [...] sitting or lying down. Medicines ? Take hmae-aqi-xornyri and prescription medicines only as told by [...] the sprain is. Treatment may involve wearing asplint or cast. Surgery to reconnect the ligament to a bone may be needed if the ligament was torn all the way. This information is not intended to replace advice given to you by your health care provider. Make sure you discuss any questions you have with your health care provider. Document Released: 04/05/2005 Document Revised: 05/18/2017 Document Reviewed: 05/18/2017 [employer]ch[employer] Interactive Patient Education ? 2019 [employer]. Cryotherapy What is cryotherapy? Cryotherapy, or cold [...] with certain other conditions. Do not use cryotherapywithout your health care provider's approval if you [...] 10/23/2011 Document Revised: 05/03/2017 Document Reviewed: 11/10/2015 ElseDiaphonics Interactive Patient Education ? 2019 [employer].[facility] HospitalED Patient Summaryon 53-78-6078VN Patient SummarySelect [facility] [place] [facility] [address], [place] [id number] PATIENT DISCHARGE INSTRUCTIONS Patient Information Name: NICCI SHAW Age: 14 Years Date of : 2005 Reason For Visit: Finger injury - Minor; RIGHT FINGER PAIN Arrival Time: 08/07/2019 19:12:03 Primary Care Physician: SHANE LBANK Attending Physician: Soto Thomas Comment: Visit Diagnosis: Diagnoses This Visit Finger injury - Minor ([id number]) Other sprain of right ring finger, initial encounter (S63.698D) Prescription Information: If you have been given a prescription for narcotics, seek immediate medical attention if you have any difficulty breathing or any sudden status changes such as confusion andsleepiness. If you or anyone you know is experiencing suicidal thoughts, mental health, alcohol and/or drug addiction problems; contact the [facility] 02/10 Crisis Hotline -Text 4HVQI ai 030198. If you received any narcotics, sedation, or [...] documents With: Address: When: ABELARDO JACKSON [address] [facility], [address] [place], [place] [id number] Business (1) Within 3 to 5 days [...] the hand. With: Address: When: SHANE BLANK [address] [place] [address] [address] [place] [id number] Business (1) Within 3 to 5 days Medication Information: The exam and treatment you received today in the [facility] Emergency Department were for an urgent problem and are not intended as complete care. It is important for you to follow up with a doctor, nurse practitioner, or physician?s care management assistant for ongoing care. If your symptoms become worse or you donot improve as expected and you are unable [...] so we can reach you if necessary. [facility] Emergency [facility] has provided you with a complete list of medications post discharge. 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 Medicines ? Take gtoe-omn-ucrcgvs and prescription medicines only as told by [...] the sprain is. Treatment may involve wearing asplint or cast. Surgery to reconnect the ligament to a bone may be needed if the ligament was torn all the way. This information is not intended to replace advice given to you by your health care provider. Make sure you discuss any questions you have with your health care provider. Document Released: 04/05/2005 Document Revised: 05/18/2017 Document Reviewed: 05/18/2017 Synchronicity[employer] Interactive Patient Education ? 2019 [employer]. Cryotherapy What is cryotherapy? Cryotherapy, or cold [...] with certain other conditions. Do not use cryotherapywithout your health care provider's approval if you [...] 10/23/2011 Document Revised: 05/03/2017 Document Reviewed: 11/10/2015 Synch[employer] Interactive Patient Education ? 2019 [employer]. Viruses or Bacteria What?s got you sick? [...] Centers for Disease Control and Prevention [facility] 2013[facility] Finger Righton 19-11-9458LB Finger RightIMAGES REVIEWED: XR Finger Right, 3 views COMPARISON: None available. CLINICAL INDICATION: Softball injury, pain. FINDINGS/IMPRESSION: 1. Prominent soft tissue swelling of the fourth digit centered at the PIP joint. 2. No radiographic evidence of acute fracture. No dislocation or traumatic malalignment. Final Dictated by: Gibson Lawson Dictated DT/TM: 08/07/19 7:35 Signed (Electronic Signature): Gibson Lawson 08/07/19 7:37 pm Technologist: VIRGILUniversity Hospitals Geaug[facility] Vital Signs Date TimeVital SignValuePerforming NdnnknqtlMylshqmj55-86-9457 11:47-4499Body mass index (BMI) [Ratio]23.94 kg/e5Dtuvy Terry DO Work Phone: NOSt. Louis Behavioral Medicine InstituteQrldxewkdn78-71-9972 11:47-0400Body przorh57.54 kgCorey Terry DO Work Phone: [facility] CenterAjxfcecjvt81-17-8200 11:47-0400Diastolic blood erwnacmj23 mm[Hg]Glenys Terry DO Work Phone: [facility] CenterBlnhadxsjc04-00-1452 11:47-0400Systolic blood qbzvyony336 mm[Hg]Glenys Terry DO Work Phone: [facility] CenterRealynljoj37-18-1485 16:20-0500Body mass index (BMI) [Ratio]24.81 kg/i5Dtvja Terry DO Work Phone: [facility] CenterUavyhwwkyk39-67-8005 16:20-0500Body ogpyup62.2 kg Glenys Terry DO Work Phone: [facility] CenterAbavuwdull18-18-2384 16:20-0500Diastolic blood fkbyeifq94 mm[Hg]Glenys Terry DO Work Phone: [facility] CenterIsghktsjbq36-84-8672 16:20-0500Systolic blood eaucffya258 mm[Hg]Glenys Terry DO Work Phone: noWI [facility] Encounters Encounter DateEncounter TypeCare ProviderFacilityStart: 06-09-2024 End: 72-70-4080krgenrqtuaSRIEH FAZIONot AvailableStart: 06-09-2024 End: 39-66-7547Dcwgyon encounter procedureCorey Terry DO Work Phone: [facility] BCP OBComment on above:Encounter for initial prescription of implantable subdermal contraceptiveStart: 02-06-2024 End: 31-68-8540Smiyqcf encounter procedureCorey Terry DO Work Phone: noMS BCP OBComment on above:Encounter for removal and reinsertion of Nexplanon; Encounter for other contraceptive managementStart: 02-06-2024 End: 76-40-0808ugqinpwbdlZLFPH FAZIONot AvailableStart: 06-07-2023 End: 73-20-3478Pavanfetn Result EncounterNicole Naty DO Other Phone: [facility] External Department UnsolicitedStart: 06-07-2023 End: 66-88-9633Szeobfqaw Result EncounterNicole Naty DO Other Phone: NOCJ External Department UnsolicitedStart: 09-06-2022 End: 75-11-0926duhizhyxtfFMAVJEB PROVIDERFacility:METROHealthStart: 07-11-2022 ambulatoryAbddunlap memorial hospitala AbdjovannyzizFacility:[facility] Hospitaltart: 64-06-0432weppzfitgbAF SHANE HOYFacility:L8Veamn: 05-28-2021 End: 11-19-6411kynkpwrthkKQ SHANE HOYFacility:E3Bufqr: 02-01-2021 End: 07-60-2034xvjteuswdoFB SHANE HOYFacility:F9Tyouw: 01-21-2021 End: 57-43-7616akiqedtjgdZA SHANE HOYFacility:O1Cvmts: 11-19-2020 End: 00-59-6830febqjeupmbML SHANE HOYFacility:H1 Procedures DateProcedureProcedure DetailPerforming ClinicianStart: 66-42-6230LZI INSERTION/REMOVAL OF CONTRACEPTIVE CAPSULECorey Terry DO Work Phone: Start: 07-23-4703Qivbo test visual color cmprsn methsCorey Terry DO Work Phone: Start: 48-95-5803QDV INSERTION/REMOVAL OF CONTRACEPTIVE CAPSULECorey Terry DO Work Phone: Start: 52-01-7944AU HEAD/BRAIN WO CONNicole Naty DO Other Phone: Plan of Treatment DateCare ActivityDetailAuthorStart: 35-48-4581Fecseoxdm vaccinationInfluenza Vaccine (#1)[facility] HealthcareStart: 30-55-6836Dsxdwetcg vaccinationInfluenza Vaccine (#1)[facility] Immunizations Immunization DateImmunizationNotesCare KxtyqvwtEdnlhhma59-64-2556qottgnwhc virus vaccine, unspecified formulationCorey Terry DO Work Phone: [facility] Payers DatePayer CategoryPayerPolicy [id number] [facility] Member Subscriber Plan / Payer (Effective 2023-Present) Name: Nicci Shaw Relation to Subscriber: Child Name: Nahid Shaw Date of : 1975 Address: [address] [place] [id number] Payer ID: Not on file Type: Not on file Address: [facility] [address] [place] [id number] [id number]-[id number] 2..1.949350.3.57[id number] 2..1.701179.3.579.2.973064-98-0544Cmjcyyw2297584 2..1.744164.3.579.[id number] 2..1.234222.3.579.[id number] 2..1.024441.3.579.2.36509-71-5998Oemtepz9126681 2..1.126599.3.579.2.26033-64-9275Yyhrxbs8070462 2..1.656953.3.579.2.53440-39-0331Taluklt9489520 2..1.142070.3.57[id number] Social History DateTypeDetailFanovant health rehabilitation hospitalityStart: 50-54-6428Rkpiuvz smoking status NHISTobacco smoking consumption [facility] HealthcareStart: [id number] assigned at Not on [facility] HealthcareGender identityNot on [facility] HealthcareStart: 05-75-0863CqiKjlrmuOSAV Healthcare History of Present illness Narrative 06-09-2024 Note Date & QibjZvazNhkecwyw57-08-9348 History of Present illness Narrative* Adrienne Alcaraz, HONING MACHINE SET UP OPERATOR TOOL - 06/09/2024 11:30 AM EDTAssociated Order(s): Insertion/Removal of Contraceptive Capsule Post-Procedure Diagnose(s): Encounter for initial prescription of implantable subdermal contraceptive Reason for Appointment: Patient ID: Nicci Shaw is a 18 y.o. female who presents for Contraception Patient presents today for a Nexplanon Insertion appointment. MEDICATIONS Current Outpatient Medications Medication Instructions etonogestrel-ethinyl estradiol (NuvaRing) 0.12-0.015 MG/24HR vaginal ring Insert vaginally and leave in place for 21 consecutive days (3 weeks), then remove. Wait for 7 days before inserting new ring. ALLERGIES No Known Allergies SURGICAL HISTORY No past surgical history on file. REVIEW OF SYSTEMS Review of Systems: Review of Systems All other systems reviewed and are negative. OBJECTIVE Objective: Physical Exam Constitutional: Appearance: Normal [...] nursing note reviewed. Exam conducted with a edge glue machine tender present. Vitals: Estimated body mass index is 23.94 kg/m as calculated from the following: Height as of 05/21/23: 5' 9 . Weight as of this encounter: 162 lb 1.9 oz. BP: 110/60 Patient's last menstrual period was 06/02/2024 (approximate). ASSESSMENT & PLAN Assessment/Plan Encounter Diagnosis: ICD-10-CM 1. Encounter for initial prescription of implantable subdermal contraceptive Z30.017 etonogestrel-eluting 68 mg contraceptive implant 1 each POCT , urine manually resulted Insertion/Removal of Contraceptive Capsule Date/Time: 06/09/2024 1:19 PM Performed by: Glenys Stewart DO Authorized by: Glenys Stewart DO Consent: Consent obtained: Written Consent given by: Patient Patient questions answered: yes Patient agrees, verbalizes understanding, and wants to proceed: yes Educational handouts given: yes Instructions and paperwork completed: yes Indication: Indication: Insertion of non-biodegradable drug delivery implant Pre-procedure: Pre-procedure timeout performed: yes Prepped with: povidone-iodine Local anesthetic: Lidocaine without epinephrine The site was cleaned and prepped in a sterile fashion: yes Procedure: Procedure: Insertion Small stab incision was made in arm: no Left/right: Left Preloaded contraceptive capsule trocar was placed subdermally: yes Visualization of implant was obtained: yes Contraceptive capsule was inserted and trocar removed: no Visualization of notch in stylet and palpation of device: yes Palpation confirms placement by provider and patient: yes Site was closed with steri-strips and pressure bandage applied: yes Nexplanon Insertion: Patient presents today for a Nexplanon Insertion. I have reviewed/educated patient on form of contraception and patient has been made aware that Nexplanon does not prevent the contraction of STD/STI's. Patient desires to move forward with Nexplanon insertion and written consent was obtained. Patient was placed in supine position with left elbow flexed by head. Skin was marked with pen indicating insertion site. Skin was then cleansed with betadine and 3cc of lidocaine without epinephrine was injected under the skin. While allowing sufficient numbing time to take effect, the Nexplanon device was removed from it's sterile packaging and found to be in good working order. Nexplanon implant was visualized in the sheath. The skin was held taut while the Nexplanon needle device was gently inserted underneath. After Nexplanon was deployed, the insertion device was discarded in the sharps container. The Nexplanon was palpated by both provider and patient. The insertion site was covered with lauren rile gauze. Good hemostasis was noted. Post-procedure instructions were given. Follow Up: Patient is to return to the office as needed for any routine appointments/concerns with Nexplanon Documented by Adrienne Alcaraz LPN on behalf of: Glenys Stewart DO documented in this encounterNOWI Healthcare History of Present illness Narrative 02-06-2024 Note Date & BtzzKsadYpdbdotq34-09-8113 History of Present illness Narrative* Glenys Stewart DO - 02/06/2024 3:30 PM ESTAssociated Order(s): Insertion/Removal of Contraceptive Capsule Post-Procedure Diagnose(s): [...] nursing note reviewed. Exam conducted with a edge glue machine tender present. Vitals: Estimated body mass index is 24.81 kg/m as calculated from the following: Height as of 05/21/23: 5' 9 . Weight as of this encounter: 168 lb. BP: 116/78 No LMP recorded. Patient has had an implant. ASSESSMENT & PLAN Assessment/Plan Encounter Diagnosis: ICD-10-CM 1. Encounter for removal and reinsertion of Nexplanon Z30.46 etonogestrel- eluting 68 mg contraceptive implant 1 each POCT [...] and the incision was covered with gauze. Post- procedure care was reviewed and patient will continue with proposed plan of care. Patient wasadvised to call office with any questions or concerns. Follow Up: Patient is to return to the office as needed for any routine appointments. Documented by Kassi Renner LPN on behalf of: Glenys Stewart DO documented in this encounterNOMS Healthcare Evaluation note Note Date & TypeNoteFacilityEvaluation note* Diagnosis Encounter for removal and reinsertion of Nexplanon Encounter for other contraceptive management documented in this encounter [facility] Evaluation note Note Date & TypeNoteFacilityEvaluation note* Diagnosis Encounter for initial prescription of implantable subdermal contraceptive documented in this encounter [facility] Summary [...] section and content) DATE CREATED AUTHOR 08/13/2019 [facility] DATE CREATED AUTHOR AUTHOR'S ORGANIZ ATION [address] [facility] DATE CREATED AUTHOR AUTHOR'S ORGANIZ ATION 07/20/2022 [facility] DATE CREATED AUTHOR AUTHOR'S ORGANIZ ATION 09/09/2022 [facility] DATE CREATED AUTHOR AUTHOR'S ORGANIZ ATION 06/10/2024 [facility] EPIC Reason for Visit (unrecogniz ed section and content) ReasonCommentsnexplanon removal/insertionReasonCommentsContraception Care Teams (unrecognized sec tion and content) Team MemberRelationshipSpecialtyStart DateEnd Date Shane Blank MD [address] [place] [address] PCP - GeneralFamily Medicine03/29/23Team MemberRelationshipSpecialtyStart DateEnd Date Shane Blank MD PCP - GeneralFamily Medicine03/29/23 FOR RECORDS PERTAINING TO PATIENTS WHO ARE [...] BE BASED ON THE PRIMARY CLINICAL RECORDS. [facility] [employer] [facility]. provides no warranty or guarantee of the accuracy or completeness of information in this document.
--- NOTE | 2025-01-27 10:52 | FL_ITS ---
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 4.5 minutes of fluoroscopic time utilized. A total of 18 images were obtained. FINDINGS: Esophagus appears normal in caliber without evidence of stricture, mass or ulcer. No tertiary contractions were noted. Gastroesophageal reflux was seen to level of the distal esophagus. Next The stomach. Mild thickening involving the folds suggesting underlying gastritis. No mass or ulcer. No Bezoar. Duodenal bulb and C-loop appear unremarkable. Small bowel imaging demonstrates oral contrast reached the colon within 45 minutes. Normal fold pattern is seen. No splaying of bowel loops. No small bowel dilatation. Spot imaging of the terminal ileum appears unremarkable. Fluoroscopic interrogation demonstrates no fixed small bowel loops to suggest adhesions. FL/FL upper GI w air IMPRESSION: GASTROESOPHAGEAL REFLUX WAS SEEN TO THE LEVEL OF THE DISTAL ESOPHAGUS WITHOUT STRICTURE, MASS OR ULCER. MILD THICKENING INVOLVING THE RUGAL FOLDS SUGGESTING UNDERLYING GASTRITIS. NORMAL SMALL BOWEL FOLLOW-THROUGH. Impression dictated by: Charles Evans Jr., D.O. 01/27/2025 12:05 PM Dictation Location: [employer] Electronically authenticated by: [id number] Y Date: 01/27/2025 12:05
--- NOTE | 2025-01-27 10:52 | FL_ITS ---
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 4.5 minutes of fluoroscopic time utilized. A total of 18 images were obtained. FINDINGS: Esophagus appears normal in caliber without evidence of stricture, mass or ulcer. No tertiary contractions were noted. Gastroesophageal reflux was seen to level of the distal esophagus. Next The stomach. Mild thickening involving the folds suggesting underlying gastritis. No mass or ulcer. No Bezoar. Duodenal bulb and C-loop appear unremarkable. Small bowel imaging demonstrates oral contrast reached the colon within 45 minutes. Normal fold pattern is seen. No splaying of bowel loops. No small bowel dilatation. Spot imaging of the terminal ileum appears unremarkable. Fluoroscopic interrogation demonstrates no fixed small bowel loops to suggest adhesions. FL/FL small bowel follow through IMPRESSION: GASTROESOPHAGEAL REFLUX WAS SEEN TO THE LEVEL OF THE DISTAL ESOPHAGUS WITHOUT STRICTURE, MASS OR ULCER. MILD THICKENING INVOLVING THE RUGAL FOLDS SUGGESTING UNDERLYING GASTRITIS. NORMAL SMALL BOWEL FOLLOW-THROUGH. Impression dictated by: Charles Evans Jr. DChepeOChepe 01/27/2025 12:05 PM Dictation Location: [employer] Electronically authenticated by: [id number] Y Date: 01/27/2025 12:05
--- NOTE | 2025-01-27 10:52 | FL_ITS ---
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 4.5 minutes of fluoroscopic time utilized. A total of 18 images were obtained. FINDINGS: Esophagus appears normal in caliber without evidence of stricture, mass or ulcer. No tertiary contractions were noted. Gastroesophageal reflux was seen to level of the distal esophagus. Next The stomach. Mild thickening involving the folds suggesting underlying gastritis. No mass or ulcer. No Bezoar. Duodenal bulb and C-loop appear unremarkable. Small bowel imaging demonstrates oral contrast reached the colon within 45 minutes. Normal fold pattern is seen. No splaying of bowel loops. No small bowel dilatation. Spot imaging of the terminal ileum appears unremarkable. Fluoroscopic interrogation demonstrates no fixed small bowel loops to suggest adhesions. FL/FL cineradiography IMPRESSION: GASTROESOPHAGEAL REFLUX WAS SEEN TO THE LEVEL OF THE DISTAL ESOPHAGUS WITHOUT STRICTURE, MASS OR ULCER. MILD THICKENING INVOLVING THE RUGAL FOLDS SUGGESTING UNDERLYING GASTRITIS. NORMAL SMALL BOWEL FOLLOW-THROUGH. Impression dictated by: Charles Evans Jr. DChepeOChepe 01/27/2025 12:05 PM Dictation Location: [employer] Electronically authenticated by: [id number] Y Date: 01/27/2025 12:05
== END 2025-01-27 08:52 | disposition home or self-care (01) ==
LOC: FL 08:51
PROVIDERS: PCP Family Medicine; Visit Provider Family Medicine
DX: F63.3 Trichotillomania (principal); K21.9 Gastro-esophageal reflux disease without esophagitis
CPT/HCPCS: 74246; 74248; 76120; Q9963

== ENCOUNTER 2025-02-02 08:46 | Outpatient (OUT) | payer BC, SELFPAY ==
--- OUTSIDE RECORDS SUMMARY | 2025-01-27 07:43 | XMS_ITS ---
Author Organization [facility] [place] Address [address] [place] [address] Care Team Providers Care Cash Applications Coordinator Name Role Phone Jose Blank Primary Care Provider [phone] REASON FOR VISIT upper GI results Medications Medication SIG (Take, Route, Frequency, Duration) Notes Start Date End Date Status Pantoprazole Sodium 20 MG 1 tablet 1/2 t o 1 hour before morning meal Orally Once a day; Duration: 30 days 5Active Problems Problem Type SNOMED Code ICD Code Onset Dates Problem Status W/U Status Risk Notes Problem Gastroesophageal ref lux disease (614502844) GERD (gastroesophageal reflux disease) (K21.9) Activeconfirmed Encounters Encounter Location Date Provider Diagnosis [facility] [address] [place] [address] 01/27/2025 Jose Blank GERD (gastroesophage al reflux disease) K21.9 Assessments Encounter Date Diagnosis (ICD Code) Assessment Notes Treatment Notes Treatment Clinical Notes Section Notes 01/27/2025 GERD (gastroesophageal reflux di sease) (ICD-10 - K21.9) Plan Of Treatment Medication Medication Name Sig Start Date Stop Date Notes Pantoprazole Sodium 20 MG 1 tablet 1/2 t o 1 hour before morning meal Orally Once a day; Duration: 30 days 01/27/2025 Pending Test Test Name Order Date US abdomen complete 01/27/2025 Progress Notes * Nicci POSADAS LDOB: [birth year] (19 yo F)Acc No.[id number]:01/27/2025 Patient:?Nicci POSADAS :2005???Age:19 Y???Sex:FemalePhone:[phone] Address:[address] [place] [address], [address] * Refills Start Pantoprazole Sodium Tablet Delayed Release, 20 MG, Orally, 30, 1 tablet 1/2 to 1 hour before morning meal, Once a day, 30 days Subjective: * Chief Complaints: * u pper GI results * Medical History: * Surgical History: * Hospitalization/Major Diagno stic Procedure: * Medications: Objective: * Vitals: * Physical Examination: ??? Assessment: * Assessment: 1.?GERD (gastroesophageal reflux disease) - K21.9 (Primary)??? Plan: * Treatment: ?Imaging: US abdomen complete* attn: gallbladder 2.?Others? Start Pantoprazole Sodium Tablet Delayed Release, 20 MG, 1 tablet 1/2 to 1 hour before morning meal, Orally, Once a day, 30 days, 30.?? * Procedure Codes: * true * Date:?Generated for Printing/Faxing/eTransmitting on:?02/02/2025 08:49 AM EST
--- OUTSIDE RECORDS SUMMARY | 2025-02-02 08:49 | XMS_ITS | Clinical Summary ---
Author Organization [facility] Healthcare Address [address] [place] [address] Care Team Providers Care Yard Jockey Name Role Phone Sadiq Blank MD Primary Care Provider [phone] Allergies No known active allergies Medications MedicationSigDispense QuantityRefillsLast FilledStart DateEnd DateStatus etonogestrel-ethinyl estradiol (NuvaRing) 0.12-0.015 MG/24HR vaginal ring Indications:Encounter for other contraceptive managementInsert vaginally and leave in place for 21 consecutive days (3 weeks), then remove. Wait for 7 days before inserting new ring. 1 each ctiveHospital, Clinic, or Other Facility Administered Medication Ordered DoseRouteFrequencyStart DateEnd DateStatus etonogestrel-eluting 68 mg contraceptive implant 1 each Indications:Encounter for initial prescription of implantable subdermal contraceptive1 ieppRUZnsanfhrwe53/31/841824/8Active Active Problems ProblemNoted DateDiagnosed DateTension type ijsogkvo18/09/2024Migraine without aura and without status migrainosus, not xdrvzxcfgmy15/09/2024Shift work sleep iiwfywzu66/09/2024 Social History Tobacco UseTypesPacks/DayYears UsedDateSmoking Tobacco: Unknown Tobacco Cessation:Counseling Given: Not Answered CommentsNoSex and Gender InformationValueDate RecordedSex Assigned at BirthNot on fileLegal LipQyeacq30/15/2023 11:47 PM EDTGender IdentityNot on file Sexual OrientationNot on file Last Filed Vital Signs Vital SignReadingTime TakenCommentsBlood Kkvxkjbb430/60006/09/2024 11:47 AM EDT Pulse--Temperature--Respiratory Rate--Oxygen Saturation--Inhaled Oxygen Concentration--Zbirtg24.5 kg (162 lb 1.9 oz)06/09/2024 11:47 AM VBKXhhuqn185.3 cm (5' 9 )05/21/2023 6:45 AM EDTBody Mass Index23.9405/21/2023 6:45 AM EDT Plan of Treatment Not on file Insurance Care Teams Team MemberRelationshipSpecialtyStart Date Sadiq Blank MD PCP - GeneralFamily Medicine03/29/23
--- NOTE | 2025-02-02 08:50 | US_ITS ---
The [address] [address] Patient Name: COREEN SHAW MRN: [id number] date: 2005 Sex: F Assigned Patient Location: Current Patient Location: Accession/Order Number: [id number] Exam Date: 02/02/2025 08:51 Report Date: 02/02/2025 10:12 At the request of: SHANE OTERO MD Procedure: US abdomen complete COMPLETE ABDOMINAL ULTRASOUND CLINICAL HISTORY: Gastroesophageal Reflux Disease COMPARISON: None The gallbladder is physiologically distended without shadowing calculi, wall thickening or pericholecystic fluid. No intra- or extrahepatic biliary dilatation is evident. The common duct measures 2 - 3 mm. The liver is normal in echogenicity. No intrahepatic masses are seen. There is appropriate hepatopetal flow within the main portal vein. The pancreas shows no significant sonographic abnormality. The right kidney measures 9.9 cm and the left 10.9 cm in craniocaudal dimension. There are no shadowing calculi, renal mass lesions or hydronephrosis. The spleen is normal in size and echogenicity measuring 10.9 cm in craniocaudal dimension. The IVC is patent. No aortic aneurysm is seen. There is no ascites. US/US abdomen complete IMPRESSION: NEGATIVE ABDOMINAL ULTRASOUND. Impression dictated by: Kassi Decker M.D. 02/02/2025 10:12 AM Dictation Location: [place] [address] Electronically authenticated by: [id number] Y Date: 02/02/2025 10:12
--- OUTSIDE RECORDS SUMMARY | 2025-02-02 08:50 | XMS_ITS | Clinical Summary ---
Author Organization [facility] tem Address [id number] [address] [place] [address] Care Team Providers Care Drum Maker Name Role Phone Unavailable Primary Care Provider Unavailabl e Social History Tobacco UseTypesPacks/DayYears UsedDateSmoking Tobacco: Never AssessedChildcare AnswerDate ZjehmtodOngbpwaixYbtbxlf25/12/2019EmploymentAnswerDate Recorded FnvjgxirtlZuhrczp02/12/2019CommentsUnknownSex and Gender Information ValueDate RecordedSex Assigned at BirthNot on fileLegal HckXqlqfs90/21/2015 3:54 PM EDTGender IdentityNot on fileSexual OrientationNot on file Plan of Treatment Not on file Medical Devices Not on file
--- OUTSIDE RECORDS SUMMARY | 2025-02-02 08:50 | XMS_ITS | CCD ---
Author Organization [facility] CliniSyvt Care Team Providers Care Dry Pan Charger Name Role Phone BRANDEN, DR LYNN Attending [...] Unavailable Shane Blank MD Primary Care Provider [phone] GLENYS STEWART Attending Unavailable GLENYS STEWATR Attending Unavailable Shane Blank MD Primary Care Provider [phone] Allergies Allergy ClassificationReported Allergen(s)Allergy TypeDate of OnsetReaction(s) Facility (1 source)AmoxicillinDrug Onoyatr43-57-4485Jrq [facility] Repository Medications Current Medications MedicationDrug Class(es)DatesSig (Normalized)Sig (Original)21 day ethinyl estradiol 0.755337 mg/hr / etonogestrel 0.005 mg/hr vaginal system (2 sources)Progestin, EstrogenStart: 39-87-1148lytubmccazyu-ethinyl estradiol (NuvaRing) 0.12-0.015 MG/24HR vaginal ring Indications: [...] Translations: [Encounter for surveillance of implantable subdermal contraceptive]27-67-7698ZxaagoaqF Codes: Struck by; against (1 source)Striking against or struck by other objects, initial encounter; Translations: [STRIKING AGNST/STRUCK OTH OBJ INIT]Onset: 16-62-6748KwaissofW Codes: Unspecified (1 source)Activity, baseball; Translations: [ACTIVITY BASEBALL]Onset: 05-31-2021 EpisodicHeadache; including migraine (6 sources)Tension-type headache; Translations: [Tension-type headache, unspecified, not intractable]Onset: 370622-69-4583RtqpobeJlqjt nervous system disorders (3 sources)Circadian rhythm sleep disorder of shift work type; Translations: [Circadian rhythm sleep disorder,shift work type]Onset: 363621-94-9681 ChronicOther non-traumatic joint disorders (4 sources)Pain in left wrist; Translations: [PAIN IN LEFT WRIST]Onset: 34-06-5186UotybxpiRuyncrxtxgz injury; contusion (1 source)Contusion of left wrist, initial encounter; Translations: [CONTUSION LEFT WRIST INITIAL ENC]Onset: 63-83-5423SmebesnaIlpayxexiaok (3 sources)CONTACT W/AND (SUSP) EXPOS COVID-19; Translations: [CONTACT W/AND (SUSP) EXPOS COVID-19]Onset: 00-38-5659Vhjejftjhawq (3 sources)ENCOUNT FOR SCREENING FOR COVID-19; Translations: [ENCOUNT FOR SCREENING FOR COVID-19]Onset: 11-29-2020 Past or Other Problems Problem ClassificationProblemDateDocumented DateEpisodic/ChronicOther screening for suspected conditions (not mental disorders or infectious disease) (4 sources)Encounter for screening for malignant neoplasm of cervix; Translations: [ENC SCREENING MALIG NEOPLASM CERV]Onset: 35-27-4853YpfgovukAomcg upper respiratory infections (1 source)Acute sinusitis, unspecified; Translations: [ACUTE SINUSITIS UNSPECIFIED]Onset: 72-72-4467CgbezvkuPdoonsqazgbd (1 source)CONTACT W/AND (SUSP) EXPOS COVID-19; Translations: [CONTACT W/AND (SUSP) EXPOS COVID-19]Onset: 10-56-3530Jfozpisosdin (1 source)ENCOUNT FOR SCREENING FOR COVID-19; Translations: [ENCOUNT FOR SCREENING FOR COVID-19]Onset: 11-19-2020 Results Test NameValueInterpretationReference RangeFacilityHCG ( test) Ql (U)on 39-18-7292Hvskmslpekawrc and review of laboratory resultsNormMain Line Health/[facility] Preg Test, UrNegativeNegativeAtrium Health SouthParkInsertion/Removal of Contraceptive Capsuleon 33-38-7493Pdubyck Alcaraz LPN 06/09/2024 2:06 PM Insertion/Removal of [...] the office as needed for any routine appointments.[facility] HealthcareInsertion/Removal of Contraceptive CapsuleOrdered By: Adrienne Alcaraz on 44-60-9471PZAPChildren's [facility] HEAD/BRAIN WO CONon 20-22-6018[address] [address] Magnetic Resonance Report Signed Patient: NICCI SHAW MR#: [id number] : 2005 Acct:[id number] Age/Sex: 17 / F ADM Date: 06/07/23 Loc: MRI Attending Dr: Keke Acrhuleta D.O. Ordering Physician: Keke Archuleta D.O. Date of Service: 06/07/23 Procedure(s): MR head/brain wo con Accession Number(s): [id number] cc: Keke Archuleta D.O.; Shane Blank M.D. [address] [place] [address] Patient Name: NICCI SHAW MRN: [id number] date: 2005 Sex: F Assigned Patient Location: MRI Current Patient Location: MRI Accession/Order Number: [id number] Exam Date: 06/07/2023 08:40 Report Date: 06/07/2023 [...] M.D. Signed By: 06/07/23930 DD/ 8 TD/TT: Steam Shovelman:TBHRadiology, Radiologist, MD - 06/07/2023 [place] [address] Magnetic Resonance Report Signed Patient: NICCI SHAW MR#: [id number] : 2005 Acct:[id number] Age/Sex: 17 / F ADM Date: 06/07/23 Loc: MRI Attending Dr: Keke Archuleta D.O. Ordering Physician: Keke Archuleta D.O. Date of Service: 06/07/23 Procedure(s): MR head/brain wo con Accession Number(s): [id number] cc: Keke Archuleta D.O.; Shane Blank M.D. [facility] [place] [address] Patient Name: NICCI SHAW MRN: [id number] date: 2005 Sex: F Assigned Patient Location: MRI Current Patient Location: MRI Accession/Order Number: [id number] Exam Date: 06/07/2023 08:40 Report Date: 06/07/2023 [...] M.D. Signed By: 06/07/23930 DD/ 8 TD/TT: Steam Shovelman: [facility] HospitalRadiology Study observation (narrative)[facility] HEAD/BRAIN WO CONOrdered By: Radiologist Radiology on 09-38-1964FWLG Iwebalize Work Phone: XR WRIST LT MIN 3 Von 71-03-3283PP WRIST LT MIN 3 V IMAGES REVIEWED: [...] Electronically authenticated by: GIBSON LAWSON Date: 2021-05-28 15:24[facility] HospitalCHLAMYDIA/GONOCOCCUS WAYNE (SWAB/URINE/PAPon 65-24-4254Nwjqzpibb trachomatis, NAANegativeNormalNegativeCommunity Regional Medical CenterComment on above: Performed By: #### CT/NGNA #### [facility] [address] [place] [address] Dr. Stephanie PierreNeisseria gonorrhoeae, NAANegativeNormalNegativeCommunity Regional Medical CenterComment on above:Performed By: #### CT/NGNA #### [facility] [address] [place] [address] Dr. Stephanie PierreVAGINITIS/VAGINOSIS DNA PROBEon 20-52-8812Zdcybcw speciesNegative NormalNegativeCommunity Regional Medical CenterComment on above:Performed By: #### VAGINT #### [facility] [address] [place] [address] Dr. Stephanie Persauderella vaginalisNegativeNormalNegativeCommunity Regional Medical Center Comment on above:Performed By: #### VAGINT #### [facility] [address] [address] [address] Stephanie PierreTrichomonas vaginalisNegativeFreeman Orthopaedics & Sports MedicinealNegativeCommunity Regional Medical Center Comment on above:Performed By: #### VAGINT #### [facility] [address] [place] [address] Dr. Stephanie PierreCovid-19 PCR (CVDTBH)on 17-18-1698VSGY-CoV-2 (COVID-19) RNA WAYNE+probe Ql (Unsp spec)Not detectedNormalNOT DETECTEDThe [facility] Comment on above:Result Comment: This test is not yet approved or cleared by the [place] FDA. When there are no FDA-approved or cleared tests available, and other criteria are met, FDA can make tests available under an emergency access mechanism called an Emergency Use Authorization (EUA). The EUA for this test is supported by the Estimator Binding of Health and Human Service's (HHS's) declaration [...] and symptoms consistent with SARS-CoV-2.Performed By: #### [facility]WE[facility] #### [facility] [address] [place] [address] Dr. Stephanie Stoll-19 PCR ([facility])on 57-87-8256HNNI-CoV-2 (COVID-19) RNA WAYNE+probe Ql (Unsp spec)Not detectedNormalNOT DETECTEDThe [facility] Comment on above:Result Comment: This test is not yet approved or cleared by the [place] FDA. When there are no FDA-approved or cleared tests available, and other criteria are met, FDA can make tests available under an emergency access mechanism called an Emergency Use Authorization (EUA). The EUA for this test is supported by the Estimator Binding of Health and Human Service's (HHS's) declaration [...] consistent with SARS-CoV-2.Performed By: #### CVDTBH #### [facility] [address] [place] [address] Angus SinghenSYMPTOMATIC COVID-19 ANTIGENon 14-22-0177XHW StatementSEE BELOW NormalThe [facility] Tiffin HospitalComment on above:Result Comment: This test has [...] is revoked sooner.Performed By: #### CVDAGS #### [facility] [address] [place] [address] Angus LawlerZgszvFEUM-PbA-3 (COVID-19) RNA WAYNE+probe Ql (Unsp spec)NegativeNormal NEGATIVEThe [facility]iffin HospitalComment on above:Result Comment: CONFIRMATION BY PCR PENDING PER CDC GUIDELINES/ SYMPTOMATIC PATIENT.Performed By: #### CVDAGS #### [facility] [address] [place] [address] Angus KarenCoding Summaryon 24-38-0171Ptfgte SummaryCODING DATE: 08/13/2019 [facility] STATUS: Home PAYOR: Medicaid HMO ADMIT DX: [...] By: Juan Howard Date Saved: 08/13/2019 09:03 [facility] CenterCoding SummaryCODING DATE: 08/13/2019 [facility] STATUS: Home PAYOR: Medicaid HMO ADMIT DX: [...] By: Juan Howard Date Saved: 08/13/2019 09:01 [facility] CenterConsent Formson 08-11-2019 Consent [id number] Community HospitalED Clinical Summaryon 34-83-8531GB Clinical [facility] - Emergency Department [address] [place] [address] ED Clinical Summary PERSON INFORMATION Name: NICCI SHAW Age: 14 Years Sex: FEMALE : 2005 MRN: Acct#: Visit Reason: Finger injury - Minor; RIGHT FINGER PAIN Arrival: 08/07/2019 19:12:03 Discharge: 08/07/2019 20:18:00 LOS: 000 01:06 Check In: 08/07/2019 19:12:03 Checkout:08/07/2019 20:18:00 Address: [address] [place] [address] PCP: SHANE BLANK PROVIDER INFORMATION Provider Role [...] sprain of right ring finger, initial encounter (VWZ56-HR S63.694A, Discharge, Medical) Plan Condition: Stable. Disposition: [...] Follow-Up: With: Address: When: ABELARDO JACKSON [address] [place] [address] Business (1) Within 3 to [...] hand. With: Address: When: SHANE BLANK [address] [place] [address] Business (1) Within 3 to 5 days DIAGNOSIS: Other sprain of right ring finger, initial encounter Patient Understands: Yes - Patient/family/caregiver verbalizes understanding of instructions given Comment:[facility] CenterED Note - Physicianon 82-60-2734ZQ Note - PhysicianPatient: NICCI SHAW Age: 14 [...] sprain of right ring finger, initial encounter (YEZ51-EU S63.694A, Discharge, Medical) Plan Condition: Stable. Disposition: [...] Luis [Verified on: 08/07/2019 20:12 EDT] Lesvia LuisNmrosy HospitalED Note - PhysicianPatient: NICCI SHAW Age: 14 years Sex: FEMALE : 2005 Associated Diagnoses: None Author: Kev Nixon PA-C Basic Information Time seen: Date & time 08/07/2019 19:14:00. History source: Patient. Arrival mode: Private vehicle. History limitation: None. Kev Nixon PA-C VApriyaNmanahimercy health allen hospital HospitalED Patient Education Noteon 51-05-2895BM Patient Education NoteEducation Materials Orthopedics Finger Sprain, [...] sitting or lying down. Medicines ? Take rmeo-qtp-ttfdknn and prescription medicines only as told by [...] 04/05/2005 Document Revised: 05/18/2017 Document Reviewed: 05/18/2017 BRAND[employer] - Shop. [employer] a Man. Interactive Patient Education ? 2019 [employer]. Cryotherapy What is cryotherapy? Cryotherapy, or cold [...] 10/23/2011 Document Revised: 05/03/2017 Document Reviewed: 11/10/2015 ElseRe.nooble Interactive Patient Education ? 2019 [employer].[facility] CenterED Patient Summaryon 73-94-4937UD Patient SummaryMer[facility] [address], [place] [id number] PATIENT DISCHARGE INSTRUCTIONS Patient Information Name: NICCI SHAW Age: 14 Years Date of : 2005 Reason For Visit: Finger injury - Minor; RIGHT FINGER PAIN Arrival Time: 08/07/2019 19:12:03 Primary Care Physician: SHANE BLANK Attending Physician: Soto Thomas Comment: Visit Diagnosis: Diagnoses This Visit Finger injury - Minor ([id number]) Other sprain of right ring finger, initial encounter (S63.694I) Prescription Information: If you have been given a prescription for narcotics, seek immediate medical attention if you have any difficulty breathing or any sudden status changes such as confusion andsleepiness. If you or anyone you know is experiencing suicidal thoughts, mental health, alcohol and/or drug addiction problems; contact the [facility] 02/10 Crisis Hotline -Text 4HTKK ls 980643. If you received any narcotics, sedation, or [...] documents With: Address: When: ABELARDO JACKSON [address] [facility], [address] [place], [place] [id number] Business (1) Within 3 to 5 days [...] the hand. With: Address: When: SHANE BLANK [address] [place] [address] [address] [place] [id number] Business (1) Within 3 to 5 days Medication Information: The exam and treatment you received today in the [facility] Department were for an urgent problem and are not intended as complete care. It is important for you to follow up with a doctor, nurse practitioner, or physician?s certified first assistant for ongoing care. If your symptoms [...] so we can reach you if necessary. [facility] Emergency Department has provided you with a complete list of medications post discharge. Please inform your code official/provider of your visit and for further instruction [...] sitting or lying down. Medicines ? Take gamp-hmp-rsuozlx and prescription medicines only as told by [...] 04/05/2005 Document Revised: 05/18/2017 Document Reviewed: 05/18/2017 [employer] - [employer]. Interactive Patient Education ? 2019 [employer]. Cryotherapy What is cryotherapy? Cryotherapy, or cold [...] 10/23/2011 Document Revised: 05/03/2017 Document Reviewed: 11/10/2015 [employer] - [employer]. [employer]. Interactive Patient Education ? 2019 [employer]. Viruses or Bacteria What?s got you sick? [...] Centers for Disease Control and Prevention November 2013[facility] XR Finger Righton 56-53-5296KQ Finger RightIMAGES REVIEWED: XR Finger Right, 3 views COMPARISON: None available. CLINICAL INDICATION: Softball injury, pain. FINDINGS/IMPRESSION: 1. Prominent soft tissue swelling of the fourth digit centered at the PIP joint. 2. No radiographic evidence of acute fracture. No dislocation or traumatic malalignment. Final Dictated by: Gibson Lawson Dictated DT/TM: 08/07/19 7:35 Signed (Electronic Signature): Gibson Lawson 08/07/19 7:37 pm Technologist: [facility]IL[facility] Vital Signs Date TimeVital SignValuePerforming DeieuxmgvBpmsadfi26-25-1463 11:47-1570Body mass index (BMI) [Ratio]23.94 kg/j9Eskrn Terry DO Work Phone: NOSt. Luke's HospitalHboqeiqssq99-40-6327 11:47-0400Body .54 kgCorey Terry DO Work Phone: [facility] HospitalEcsupeodqs08-65-4553 11:47-0400Diastolic blood qukmgnfr31 mm[Hg]Glenys Terry DO Work Phone: [facility] HospitalMpckymtcug41-01-4200 11:47-0400Systolic blood askuutpa142 mm[Hg]Glenys Terry DO Work Phone: [facility] HospitalTgpeqxaxrk01-76-0320 16:20-0500Body mass index (BMI) [Ratio]24.81 kg/i9Opupy Terry DO Work Phone: [facility] HospitalJxzgpsxhtb88-78-2154 16:20-0500Body .2 kg Glenys Terry DO Work Phone: [facility] HospitalKrmxfqporj99-14-1039 16:20-0500Diastolic blood mm[Hg]Glenys Terry DO Work Phone: [facility] HospitalMmcouxrfdj78-06-9187 16:20-0500Systolic blood mm[Hg]Glenys Terry DO Work Phone: noNM Healthcare Encounters Encounter DateEncounter TypeCare ProviderFacilityStart: 06-09-2024 End: 61-57-6538ibbhydcrfbTLFIU FAZIONot AvailableStart: 06-09-2024 End: 21-68-8571Dsxtnnb encounter procedureCorey Terry DO Work Phone: [facility] BCP OBComment on above:Encounter for initial prescription of implantable subdermal contraceptiveStart: 02-06-2024 End: 77-39-9093Foyehmz encounter procedureCorey Terry DO Work Phone: noMS BCP OBComment on above:Encounter for removal and reinsertion of Nexplanon; Encounter for other contraceptive managementStart: 02-06-2024 End: 41-92-7665xnikskwdfgCZQBP FAZIONot AvailableStart: 06-07-2023 End: 18-77-8741Leseweyvc Result EncounterNicole Naty DO Other Phone: NONM External Department UnsolicitedStart: 06-07-2023 End: 08-29-7179Soruktgvw Result EncounterNicole Naty DO Other Phone: NOQG External Department UnsolicitedStart: 09-06-2022 End: 18-42-5587xpziumsqtpMUIIGDB PROVIDERFacility:METROHealthStart: 07-11-2022 ambulatoryAbdselect medical specialty hospital - youngstowna AbdjovannyzizFacility:[facility] Medical Centertart: 47-54-7936fwtvhqsidfIB SHANE HOYFacility:V9Hvwgn: 05-28-2021 End: 54-90-5664ssmlumujmjZD SHANE HOYFacility:C4Tmqhi: 02-01-2021 End: 96-62-4334xrkgoxwuazZZ SHANE HOYFacility:M8Mzhjz: 01-21-2021 End: 00-53-6587xlluwsowvmXS SHANE HOYFacility:X8Kcffk: 11-19-2020 End: 57-26-5058chomwncfkwDC SHANE HOYFacility:H1 Procedures DateProcedureProcedure DetailPerforming ClinicianStart: 63-51-4863OFF INSERTION/REMOVAL OF CONTRACEPTIVE CAPSULECorey Terry DO Work Phone: Start: 33-56-2226Alhge test visual color cmprsn methsCorey Terry DO Work Phone: Start: 00-28-3020IPG INSERTION/REMOVAL OF CONTRACEPTIVE CAPSULECorey Trery DO Work Phone: Start: 24-00-6355CT HEAD/BRAIN WO CONNicole Naty DO Other Phone: Plan of Treatment DateCare ActivityDetailAuthorStart: 68-36-4457Wsutpqhus vaccinationInfluenza Vaccine (#1)[facility] HealthcareStart: 97-69-2057Ruwswwxto vaccinationInfluenza Vaccine (#1)[facility] Immunizations Immunization DateImmunizationNotesCare ZvcvukfbNxprgnml90-47-7804khumfnzjy virus vaccine, unspecified formulationCorey Terry DO Work Phone: NONM Healthcare Payers DatePayer CategoryPayerPolicy [id number] [facility] Member Subscriber Plan / Payer (Effective 2023-Present) Name: Nicci Shaw Relation to Subscriber: Child Name: Nahid Shaw Date of : 1975 Address: [address] [place] [id number] Payer ID: Not on file Type: Not on file Address: [facility] [address] [place] [id number] DwomzhtPNS39803373016-57-6461Wshf-[id number] 2..1.246432.3.579.2.67282-65-5346Yqraefc8444706 2..1.056485.3.579.2.752189-63-3827Wceafar2755372 2..1.186418.3.579.2.577591-80-0155Bnfhrlx4998795 2..1.020892.3.579.2.47306-54-1562Cljhsgn6745552 2..1.683456.3.579.2.31442-27-5176Ryanbeu1549522 2..1.888583.3.579.2.39190-42-8441Mipisek7082897 2..1.591335.3.579.2.15214-33-2233Ltgjyra6021436 2..1.612427.3.579.2.41971-53-7349Ngeevri638822666026 Social History DateTypeDetailFaanson community hospitalityStart: 97-26-5663Hfjmpbo smoking status NHISTobacco smoking consumption unknownMOUNTAIN POINT MEDICAL CENTER HealthcareStart: 78-89-4365Uqn assigned at Not on [facility] HealthcareGender identityNot on [facility] HealthcareStart: 44-09-5855SmzEzarcrJZMJ Healthcare History of Present illness Narrative 06-09-2024 Note Date & FhpaKtocQhnbyxyx30-42-1176 History of Present illness Narrative* Adrienne Alcaraz, CAREER EDUCATION TEACHER - 06/09/2024 11:30 AM EDTAssociated Order(s): Insertion/Removal [...] nursing note reviewed. Exam conducted with a remelt operator present. Vitals: Estimated body mass index [...] of: Glenys Stewart DO documented in this encounterNONM Healthcare History of Present illness Narrative 02-06-2024 Note Date & MmkkWrlaMzgdoxzt67-74-3284 History of Present illness Narrative* Glenys Stewart [...] nursing note reviewed. Exam conducted with a remelt operator present. Vitals: Estimated body mass index [...] section and content) DATE CREATED AUTHOR 08/13/[address] [facility] DATE CREATED AUTHOR AUTHOR'S ORGANIZ ATION 2021 [facility] DATE CREATED AUTHOR AUTHOR'S ORGANIZ ATION 07/20/2022 [facility] DATE CREATED AUTHOR AUTHOR'S ORGANIZ ATION 09/09/2022 [facility] [employer] [facility] DATE CREATED AUTHOR AUTHOR'S ORGANIZ ATION 06/10/2024 [facility] EPIC Reason for Visit (unrecogniz ed section and content) ReasonCommentsnexplanon removal/insertionReasonCommentsContraception Care Teams (unrecognized sec tion and content) Team MemberRelationshipSpecialtyStart DateEnd Date Shane Blank MD [address] [place] [address] PCP - GeneralFamily Medicine03/29/23Team MemberRelationshipSpecialtyStart DateEnd Date [...] BE BASED ON THE PRIMARY CLINICAL RECORDS. [facility] [employer] [facility]. provides no warranty or guarantee of the accuracy or completeness of information in this document.
--- OUTSIDE RECORDS SUMMARY | 2025-02-02 08:50 | XMS_ITS | Patient Health Record ---
Author Organization [facility] in [place] Address [address] [place] [address] Care Team Providers Care Thermodynamics Engineer Name Role Phone Jose Otero Primary Care Provider Allergies Allergen (clinical drug ingredient) Drug/Non Drug Allergy documented on EMR Reaction Allergy Type Onset Date Status Substance with sulfonamide s tructure and antibacterial mechanism of action (substance) Sulfa Antibiotics Face swelling Drug Allergy ActivePenicillinchildhoodDrug AllergyActive Results Component Value Reference Range Notes INSULIN Reviewed date:04/12/2024 04:03:12 PM Interpretation: Performing Lab: Notes/Report: [facility] , Insulin 7.9 2.6-24.9 uIU/mL Performed at: - [facility] [address] [id number] [employer] Sales Representative: Jonas Zimmerman PhD, Phone: [phone] Performing Lab: see note LC - [facility] LBINSULIN Reviewed date:04/03/2024 11:50:59 AM Interpretation: Performing Lab: Notes/Report: [facility] ,Pcccmsq34.72.6-24.9 uIU/mL Performed at: - [facility] [address] [id number] [employer] Sales Representative: Jonas Zimmerman PhD, Phone: [phone] Performing Lab:see noteLC - [facility] LBCBC AUTO DIFF Reviewed date:04/02/2024 03:00:37 PM Interpretation: Performing Lab: Notes/Report: [facility] ,White Blood Count6.44.0-11.0 10 3/uLRed Blood Count4.904.20-5.40 10 6/uL Bvioehezwi57.512.0-16.0 g/iUAwhoexucxb79.536.0-48.0 %Mean Corpuscular Agjctn34.8 81.0-99.0 fLMean Corpuscular Ktlbrjeref64.626.7-34.0 pgMean Corpuscular HGB Conc 33.329.9-35.2 g/dLRed Cell Distribution Width11.811.0-15.0 %Platelet Qxlcs533 150-450 10 3/uLMean Platelet Volume9.79.5-13.5 fLNeutrophils Percent Auto51.8 43.0-75.0 %Lymphocytes Percent Auto38.920.5-60.0 %Monocytes Percent Auto4.11.7- 12.0 %Eosinophils Percent Auto4.10.9-7.0 %Basophils Percent Auto0.90.2-2.0 % Immature Granulocytes Pct Auto0.20.0-0.5 %Neutrophils Absolute Auto3.31.4-6.5 10 3/uLLymphocytes Absolute Auto2.51.2-3.8 10 3/uLMonocytes Absolute Auto0.30.3-0.8 10 3/uLEosinophils Absolute Auto0.30.0-0.7 10 3/uLBasophils Absolute Auto0.10.0- 0.1 10 3/uLImmature Granulocytes Abs Auto0.010.00-0.03 10 3/uLPerforming Lab:see noteML - [facility] LBVITAMIN D 25 [place] Reviewed date:04/02/2024 03:00:37 PM Interpretation: Performing Lab: Notes/Report: [facility] ,Vitamin D36.2 <20 ng/mL Vit D deficient 20-<30 ng/mL Vit D insufficient 30-100 ng/mL Vit D sufficient >100 ng/mL Potential Toxicity Performing Lab:see noteML - [facility] Reviewed date:04/02/2024 03:00:37 PM Interpretation: Performing Lab: Notes/Report: [facility] ,Thyroid Stimulating Hormone0.2970.516-4.130 uIU/mLPerforming Lab:see noteML - [facility] LBT4 Reviewed date:04/02/2024 03:00:37 PM Interpretation: Performing Lab: Notes/Report: [facility] ,T4 Dnrnbcvgm65.905.40-10.60 ug/dLPerforming Lab:see noteML - [facility] LBPROF 14(COMP METB) Reviewed date:04/02/2024 03:00:37 PM Interpretation: Performing Lab: Notes/Report: [facility] ,Yycxot328394-836 mmol/LPotassium3.83.5-5.1 mmol/BVkeyrvtx83823-724 mmol/LCarbon Ztlrzvx50.521.0-32.0 mmol/LAnion Gap12.4Kstehed64182-404 mg/dLBlood Urea Nitrogen7.06.4-19.3 mg/dLCreatinine0.730.55-1.02 mg/dLEstimated GFR ( Amy>60>=60 mL/min/1.73m 2Estimated GFR (Non- Ana>60>=60 mL/min/1.73m 2BUN Creatinine Ratio9.8Rwojfsl1.28.5-10.1 mg/dLBilirubin Total0.30.2-1.0 mg/dL Aspartate Amino Atowjnoabxi2744-46 U/LAlanine Ogdurcpuytqbljwl1699-82 U/L Alkaline Wtvfupynlfq9755-974 U/LTotal Protein7.36.4-8.2 g/dLAlbumin Level4.13.4- 5.0 g/dLGlobulin3.2Albumin Globulin Ratio1.3Performing Lab:see noteML - [facility] LBLIPID PROFILE Reviewed date:04/02/2024 03:00:37 PM Interpretation: Performing Lab: Notes/Report: [facility] ,Iqjmaqehhcrpi8924-001 mg/eEGkdtztyayip811381-892 mg/dLHDL Oaiibzldjey3263-43 mg/dL > or =60 mg/dl - LOW CARDIOVASCULAR RISK <40 mg/dl - HIGH CARDIOVASCULAR RISK LDL Cholesterol Jrxbikvgav203.0 <100 mg/dl OPTIMAL 100-129 mg/dl NEAR OR ABOVE OPTIMAL 130-159 mg/dl BORDERLINE HIGH 160-189 mg/dl HIGH >190 mg/dl VERY HIGH VLDL CHOLESTEROL9.6Chol HDL Ratio2.7 3.3 - 4.4 LOW RISK 4.4 - 7.1 AVERAGE RISK 7.1 - 11.0 MODERATE RISK >11.0 HIGH RISK [facility] Reviewed date:04/02/2024 03:00:37 PM Interpretation: Performing Lab: Notes/Report: [facility] ,Myos182.050.0-170.0 ug/dLPerforming Lab:see [facility] GLYCOHEMOGLOBIN A1C Reviewed date:04/02/2024 03:00:37 PM Interpretation: Performing Lab: Notes/Report: [facility] ,Glycohemoglobin A1C5.14.5-6.2 % ADA RECOMMENDED LIMIT 4.0 - 6.0 ADA THERAPEUTIC TARGET < 7.0 ACTION SUGGESTED > 7.0 Estimated Average Vreaqpt455Wwgqdmgsag Lab:see [facility] FREE T3 Reviewed date:04/02/2024 03:00:37 PM Interpretation: Performing Lab: Notes/Report: [facility] ,Free T33.002.91-4.70 pg/mLPerforming Lab:see [facility] [place] small bowel follow through Reviewed date:01/27/2025 12:44:00 PM Interpretation: Performing Lab: Notes/Report: Source Facility: [place] [address] Fluoroscopy Report Signed Patient: COREEN SHAW MR#: [id number] : 2005 Acct:[id number] Age/Sex: 19 / F ADM Date: 01/27/25 Loc: IN Attending Dr: Sadiq Otero M.D. Ordering Physician: Sadiq Otero M.D. Date of Service: 01/27/25 Procedure(s): IN small bowel follow through Accession Number(s): [id number] cc: Sadiq Otero M.D. [place] [address] Patient Name: COREEN SHAW MRN: [id number] date: 2005 Sex: F Assigned Patient Location: IN Current Patient Location: IN Accession/Order Number: [id number] Exam Date: 01/27/2025 09:10 Report Date: 01/27/2025 12:05 At the request of: SADIQ OTERO MD Procedure: IN cineradiography AIR CONTRAST UPPER GI SERIES WITH SMALL BOWEL SERIES CLINICAL HISTORY: Trichotillomania In Adult COMPARISON: None TECHNIQUE: Overhead and spot imaging were performed during an upper GI small bowel follow-through. 4.5 minutes of fluoroscopic time utilized. A total of 18 images were obtained. FINDINGS: Esophagus appears normal in caliber without evidence of stricture, mass or ulcer. No tertiary contractions were noted. Gastroesophageal reflux was seen to level of the distal esophagus. Next The stomach. Mild thickening involving the folds suggesting underlying gastritis. No mass or ulcer. No Bezoar. Duodenal bulb and C-loop appear unremarkable. Small bowel imaging demonstrates oral contrast reached the colon within 45 minutes. Normal fold pattern is seen. No splaying of bowel loops. No small bowel dilatation. Spot imaging of the terminal ileum appears unremarkable. Fluoroscopic interrogation demonstrates no fixed small bowel loops to suggest adhesions. FL/FL small bowel follow through IMPRESSION: GASTROESOPHAGEAL REFLUX WAS SEEN TO THE LEVEL OF THE DISTAL ESOPHAGUS WITHOUT STRICTURE, MASS OR ULCER. MILD THICKENING INVOLVING THE RUGAL FOLDS SUGGESTING UNDERLYING GASTRITIS. NORMAL SMALL BOWEL FOLLOW-THROUGH. Impression dictated by: Charles Evans Jr., D.O. 01/27/2025 12:05 PM Dictation Location: [place] [address] Electronically authenticated by: [id number] Y Date: 01/27/2025 12:05 Dictated By: Charles Evans M.D. Signed By: 01/27/25 1207 DD/ TD/TT: Insolvency Practitioner:IN upper GI w air Reviewed date:01/27/2025 12:44:00 PM Interpretation: Performing Lab: Notes/Report: Source Facility: [place] [address] [place] [address] Fluoroscopy Report Signed Patient: COREEN SHAW MR#: [id number] : 2005 Acct:[id number] Age/Sex: 19 / F ADM Date: 01/27/25 Loc: IN Attending Dr: Sadiq Otero M.D. Ordering Physician: Sadiq Otero M.D. Date of Service: 01/27/25 Procedure(s): FL upper GI w air Accession Number(s): [id number] cc: Sadiq Otero M.D. 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 4.5 minutes of fluoroscopic time utilized. A total of 18 images were obtained. FINDINGS: Esophagus appears normal in caliber without evidence of stricture, mass or ulcer. No tertiary contractions were noted. Gastroesophageal reflux was seen to level of the distal esophagus. Next The stomach. Mild thickening involving the folds suggesting underlying gastritis. No mass or ulcer. No Bezoar. Duodenal bulb and C-loop appear unremarkable. Small bowel imaging demonstrates oral contrast reached the colon within 45 minutes. Normal fold pattern is seen. No splaying of bowel loops. No small bowel dilatation. Spot imaging of the terminal ileum appears unremarkable. Fluoroscopic interrogation demonstrates no fixed small bowel loops to suggest adhesions. FL/FL upper GI w air IMPRESSION: GASTROESOPHAGEAL REFLUX WAS SEEN TO THE LEVEL OF THE DISTAL ESOPHAGUS WITHOUT STRICTURE, MASS OR ULCER. MILD THICKENING INVOLVING THE RUGAL FOLDS SUGGESTING UNDERLYING GASTRITIS. NORMAL SMALL BOWEL FOLLOW-THROUGH. Impression dictated by: Ksenia Murcia Jr.OChepe 01/27/2025 12:05 PM Dictation [facility] Electronically authenticated by: [id number] Y Date: 01/27/2025 12:05 Dictated By: Charles Evans M.D. Signed By: 01/27/25 1207 DD/ 1205 TD/TT: Insolvency Practitioner:IN cineradiography Reviewed date:01/27/2025 12:44:00 PM Interpretation: Performing Lab: Notes/Report: Source Facility: [place] [address] Fluoroscopy Report Signed Patient: COREEN SHAW MR#: [id number] : 2005 Acct:[id number] Age/Sex: 19 / F ADM Date: 01/27/25 Loc: IN Attending Dr: Sadiq Otero M.D. Ordering Physician: Sadiq Otero M.D. Date of Service: 01/27/25 Procedure(s): IN cineradiography Accession Number(s): [id number] cc: Sadiq Otero M.D. 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 4.5 minutes of fluoroscopic time utilized. A total of 18 images were obtained. FINDINGS: Esophagus appears normal in caliber without evidence of stricture, mass or ulcer. No tertiary contractions were noted. Gastroesophageal reflux was seen to level of the distal esophagus. Next The stomach. Mild thickening involving the folds suggesting underlying gastritis. No mass or ulcer. No Bezoar. Duodenal bulb and C-loop appear unremarkable. Small bowel imaging demonstrates oral contrast reached the colon within 45 minutes. Normal fold pattern is seen. No splaying of bowel loops. No small bowel dilatation. Spot imaging of the terminal ileum appears unremarkable. Fluoroscopic interrogation demonstrates no fixed small bowel loops to suggest adhesions. FL/FL cineradiography IMPRESSION: GASTROESOPHAGEAL REFLUX WAS SEEN TO THE LEVEL OF THE DISTAL ESOPHAGUS WITHOUT STRICTURE, MASS OR ULCER. MILD THICKENING INVOLVING THE RUGAL FOLDS SUGGESTING UNDERLYING GASTRITIS. NORMAL SMALL BOWEL FOLLOW-THROUGH. Impression dictated by: Charles Evans Jr., D.O. 01/27/2025 12:05 PM Dictation Location: [place] [address] Electronically authenticated by: [id number] Y Date: 01/27/2025 12:05 Dictated By: Charles Evans M.D. Signed By: 01/27/257 DD/ 04 TD/TT: Insolvency Practitioner: Reason For Referral No Information Medications Medication SIG (Take, Route, Frequency, Duration) Notes Start Date End Date Status Pantoprazole Sodium 20 MG 1 tablet 1/2 t o 1 hour before morning meal Orally Once a day; Duration: 30 days 5ActiveCitalopram Hydrobromide 20 MG1 tablet Orally Once a day; Duration: 30 days5ActiveHyoscyamine Sulfate 0.125 MG1-2 tabs SL SL every 4 hrs PRN abd pain08/29/2024Not-Taking Social History Tobacco Use: Social History Observation Description Date Details (start date - stop date) Never Smoker NA - NA Tobacco Use/Smoking Question Answer Notes Patient is a nonsmoker Alcohol Screen (Audit-C) Question Answer Notes Did you have a drink containing alcohol in the p ast year? No Howdpn2PacstptmtbzcnyZrprfvjkGDMNO-S (Standard) Question Answer Notes Did you have a drink containing alcohol in the p ast year? 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.3)Active confirmed Vital Signs Temperature 98.4 degrees Fahrenheit 06/26/2024 Blood pressure xizjzjvrq80 mm Hg12/29/2024MI Idbnotggmr44.95 %06/26/2024Height 69.25 in12/29/2024lood pressure cpgkhfwe397 mm Hg12/29/20245162Gbxfnh234.0 lbs 12/29/2024BMI23.31 kg/m212/29/2024 Encounters Encounter Location Date Provider Diagnosis [facility] [address] [facility] [place] [address] 02/18/2024 Jose Hoy Well adult Z00.00 [facility] [address] [place] [place] [address] 02/18/2024 Jose Hoy Well adult Z00.00 [facility] [address] [place] [place] [address] 02/26/2024 Jose Hoy Well adult Z00.00 [facility] [address] [facility] [place] [address] 04/02/2024 Jose Hoy [facility] [facility] [place] [address] 04/03/2024Doug HoyAbnormal non-fasting glucose R73.09[place] [address] [facility] [address]/[facility] [facility] [address]/ Jose HoyGERD (gastroesophageal reflux disease) K21.9[place] [address] [facility] [address]/Doug HoyFatigue R53.83[facility] [facility] [address]/Doug HoyAcute non-recurrent sinusitis, unspecified location J01.90 and Nasal congestion R09.81[facility] [facility] [address]/Doug HoyGastroenteritis K52.9[place] [address] [facility] [address]/ Jose HoyTrichotillomania in adult F63.3 Assessments Encounter Date Diagnosis (ICD Code) Assessment Notes Treatment Notes Treatment Clinical Notes Section Notes 08/29/2024 Gastroenteritis (ICD-10 - K52.9) Get plenty of rest. Stay hydrated by sucking on ice chips or taking small sips of water. You can also try drinking clear soda, clear broths or noncaffeinated sports drinks. Stop eating solid foods for a few hours to let your stomach settle. East back into eating by eating bland, imwh-fc-txvhak foods like crackers, toast, gelatin, bananas, rice and chicken. Try to avoid foods/substances including dairy products, caffeine, alcohol, nicotine and fatty or highly seasoned foods. Medications such as ibuprofen or tylenol can make your stomach more upset, so use sparingly if at all. Also avoid jiex-tff-fcuilbs anti-diarrheal medications because it can make it harder for your body to eliminate the virus.12/29/2024Trichotillomania in adult (ICD-10 - F63.3) 02/18/2024Well adult (ICD-10 - Z00.00)02/18/2024Well adult (ICD-10 - Z00.00) 02/26/2024Well adult (ICD-10 - Z00.00)04/03/2024bnormal non-fasting glucose (ICD-10 - R73.09)01/27/2025GERD (gastroesophageal reflux disease) (ICD-10 - K21.9)03/27/2024Fatigue (ICD-10 - R53.83)5Acute non-recurrent sinusitis, unspecified location (ICD-10 - J01.90)Rest and drink more liquids, especially water. You may use a humidifier or vaporizer to help keep the drainage moist. Urea-lqv-lcmyjsc Nasal Saline may help the stuffy and runny nose. Use Ibuprofen and or Tylenol as needed for fever, chills, body aches or pain. Children 5 years old should not be given smcn-fmu-hxuqrul cough and cold medications such as guaifenesin and dextromethorphan. If you're over age 5, you may try vrhj-ulz-casmcrs cold medications such as guaifenesin and dextromethorphan, or multi-symptom cold reliever such as Dayquil to help reduce the symptoms. Antibiotics have been prescribed. You should take these until completed and follow the directions. Antibiotics can sometimescause upset stomach, and in rare cases, serious allergic reactions or serious gastrointestinal problems. If you start having severe abdominal pain, severe vomiting, or bloody diarrhea, you should be reevaluated by your physician or urgent care immediately. Follow up with your Primary Care Provider or return to clinic if symptoms do not improve within 3-5 days06/26/2024Nasal congestion (ICD-10 - R09.81) Plan Of Treatment Pending Test Test Name Order Date CMP (COMPLETE METABOLIC PANEL) 4 HEMOGLOBIN A1C (GLYCO) 03/27/2024 HEMOGLOBIN A1C (GLYCO) 04/06/2023 IRON, TOTAL 03/27/2024 IRON, TOTAL 04/06/2023 LIPID PANEL (CHOL/TRIG/HDL/LDL) 04/06/19 24 LIPID PANEL (CHOL/TRIG/HDL/LDL) 03/27/19 25 CBC WITH DIFF 03/27/2024 CBC WITH DIFF 04/06/2023 VITAMIN D, 25 LEVEL (TOTAL) 03/27/2024 Insulin Level 03/27/2024 XR Upper GI w/ Air + Small Bowel 025 THYROID PANEL (T4/TSH/FREE T3) 5 THYROID PANEL (T4/TSH/FREE T3) 4 US abdomen complete 01/27/2025 CMP (COMP MET LOWE) w/eGFR CKD-EPI 2024 Insurance Providers Payer Name Payer Address Payer Phone Subscriber Number Group Number Insured Name Patient Relationship to Insured Coverage Start Date Coverage End Date CHERELLE BATRES [address] [place] [address] [id number] Shyanne Shaw - patient is the owophwr02 2023 Medical (General) History Medical History History ICD Code Anxiety F41.9 Depression F32.A Eczema L30.9 Insomnia G47.00 Scoliosis M41.9 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
== END 2025-02-02 08:47 | disposition home or self-care (01) ==
LOC: US 08:46
PROVIDERS: PCP Family Medicine; Visit Provider Family Medicine
DX: K21.9 Gastro-esophageal reflux disease without esophagitis (principal)
CPT/HCPCS: 76700